=== PATIENT | male | born 1960 | race Caucasian/White ===

== ENCOUNTER 2021-02-14 16:13 | Inpatient (IN) | payer MEDICAID ==
[~2021-02-14] VITALS: Ht 180.3 cm; Wt 122.7 kg
[2021-02-14 20:36] LABS: BASOPHILS # (AUTO) 0.1 X10'3 (0-0.2); BASOPHILS % (AUTO) 0.6 % (0-1); EOSINOPHILS # (AUTO) 0.2 X10'3 (0-0.9); EOSINOPHILS % (AUTO) 1.3 % (0-6); HEMATOCRIT 42.3 % (42.0-52.0); HEMOGLOBIN 14.5 g/dl (14.0-17.9); LYMPHOCYTES % (AUTO) 22.9 % (21-51); MEAN CORPUSCULAR HEMOGLOBIN 30.2 PG (27.0-31.0); MEAN CORPUSCULAR HGB CONC 34.2 g/dL (33.0-36.5); MEAN CORPUSCULAR VOLUME 88.4 FL (78-98); MEAN PLATELET VOLUME 7.7 FL (7.4-10.4); MONOCYTES % (AUTO) 7.7 % (2-12); NEUTROPHILS # (AUTO) 8.7 X10'3 (1.8-7.7); NEUTROPHILS % (AUTO) 67.5 % (42-75); PLATELET COUNT 246 X10'3 (140-440); RED BLOOD COUNT 4.79 X10'6 (4.70-6.10); RED CELL DISTRIBUTION WIDTH 13.6 % (11.5-14.5); WHITE BLOOD COUNT 12.9 X10'3 (4.5-11.0)
[2021-02-14 20:52] LABS: ALANINE AMINOTRANSFERASE 8 U/L (12-78); ALBUMIN 3.2 G/DL (3.4-5.0); ALBUMIN/GLOBULIN RATIO 0.7 (1.1-1.5); ALKALINE PHOSPHATASE 77 IU/L (46-116); ANION GAP 9 (8-16); ASPARTATE AMINO TRANSFERASE 9 U/L (10-37); BILIRUBIN,TOTAL 0.3 MG/DL (0.1-1.0); BLOOD UREA NITROGEN 15 MG/DL (7-18); BUN/CREATININE RATIO 17.9 (5.4-32.0); C-REACTIVE PROTEIN 2.01 MG/DL (0.0-0.5); CALCIUM 8.6 MG/DL (8.5-10.1); CHLORIDE 105 MMOL/L (99-107); CREATININE 0.84 MG/DL (0.60-1.10); GLUCOSE 115 MG/DL (70-104); POTASSIUM 4.2 MMOL/L (3.5-5.1); SODIUM 141 MMOL/L (135-145); TOTAL PROTEIN 7.5 G/DL (6.4-8.2); eGFR > 90 ML/MIN
[2021-02-14] MEDS ORDERED: ringers solution, lactated 1000ml IV soln IV ONE (20:55)
[2021-02-14] MEDS ORDERED: ondansetron/PF 4mg/2ml inj IV ONE (20:55)
[2021-02-14] MEDS ORDERED: vancomycin/NS 1 GM ADD-VANTAGE 250 ML IV ONE (20:55)
[2021-02-14] MEDS ORDERED: morphine 2 MG/ML inj. syringe IV ONE (20:55)
[2021-02-14] MEDS ORDERED: piperacillin/tazo 4.5gm/100ml 100 ML IV SCH (20:58)
[2021-02-15] MEDS ORDERED: normal saline 1000ML IV soln IVB ONE (08:50)
[2021-02-15] MEDS ORDERED: magnesium hydroxide 30ml (MOM) UD suspension PO PRN (08:50)
[2021-02-15] MEDS ORDERED: potassium Cl 20 mEq SR tablet PO PRN ×2 (08:50)
[2021-02-15] MEDS ORDERED: ondansetron/PF 4mg/2ml inj IV PRN (08:50)
[2021-02-15] MEDS ORDERED: mag hydrox/Alum hydrox/simeth 30ml oral suspension PO PRN (08:50)
[2021-02-15] MEDS ORDERED: vancomycin/NS 1 GM ADD-VANTAGE 250 ML IV ONE (08:50)
[2021-02-15] MEDS ORDERED: magnesium 4gm in 100ml NS 100 ML IV PRN (08:50)
[2021-02-15] MEDS ORDERED: HYDROcodone/acetaminophen 5mg/325mg tablet PO PRN (08:50)
[2021-02-15] MEDS ORDERED: bisacodyl 10mg suppository rectal RC PRN (08:50)
[2021-02-15] MEDS ORDERED: magnesium Cl slow-release 64mg tablet PO PRN (08:50)
[2021-02-15] MEDS ORDERED: piperacillin/tazo 3.375gm/50ml 50 ML IV ONE (08:50)
[2021-02-15] MEDS ORDERED: acetaminophen 325mg tablet PO PRN ×2 (08:50)
[2021-02-15] MEDS ORDERED: potassium Cl 40MEQ/1/2NS 520ml 520 ML IV PRN ×2 (08:50)
[2021-02-15] MEDS ORDERED: magnesium 2GM in 50ml NS 50 ML IV PRN (08:50)
[2021-02-15] MEDS ORDERED: iohexol 350MG/ML 100ml bottle IV ONE (09:18)
[2021-02-15] MEDS: normal saline 1000ml 1,000 ML IV SCH ×2 (11:35→21:00)
[2021-02-15] MEDS: HYDROcodone/acetaminophen 10/325mg tab PO PRN (12:16)
[2021-02-15] MEDS ORDERED: ATOR40TA72 PO (12:51)
[2021-02-15] MEDS ORDERED: ALBU8HFA INH (12:51)
[2021-02-15] MEDS ORDERED: PREG300C19 PO (12:51)
[2021-02-15] MEDS ORDERED: SPIR25TA5 PO (12:51)
[2021-02-15] MEDS ORDERED: LISI20TA28 PO (12:51)
[2021-02-15] MEDS ORDERED: APIX5TAB3 PO (12:51)
[2021-02-15] MEDS ORDERED: TRAZ-256 PO (12:51)
[2021-02-15] MEDS ORDERED: METO25TA6 PO (12:51)
[2021-02-15] MEDS ORDERED: CHOL500050 PO (12:51)
[2021-02-15] MEDS ORDERED: METF-1203 PO (12:51)
[2021-02-15] MEDS ORDERED: SITA100T15 PO (12:51)
[2021-02-15] MEDS: HYDROmorphone inj. 0.5 MG/0.5 ML DISP.SYRIN IV PRN ×2 (13:35→22:06)
--- NOTE | 2021-02-15 14:38 | NUR ---
RELIEVING RN FOR BREAK, PT IS SLEEPING, RESP EVEN AND UNLABORED
[2021-02-15] MEDS ORDERED: albuterol 2.5 MG/3 ML nebule NEB PRN (15:00)
--- NOTE | 2021-02-15 15:39 | NUR ---
AT PATIENTS BEDSIDE, PATIENT WILL BE GOING TO OR TOMMORROW PATIENT CAN EAT TONIGHT DR. HANSON GAVE ME VERBAL DIET ORDER CARB CONTROLLED,HEART HEALTHY
[2021-02-15] MEDS ORDERED: PERFLUTREN PROTEIN-A MICROSPHR (Optison) 0.22 MG/ML 3ML VIAL IV ONE (17:20)
[2021-02-15 18:23] LABS: PARTIAL THROMBOPLASTIN TIME 30 SECONDS (22-32)
--- NOTE | 2021-02-15 20:30 | NUR ---
Received report from Paresh WALTON in the ER. Pt arrived on the unit via gurney and was able to ambulate with assistance to his bed. His personal belongings including his cane were placed at bedside. Pt was on room air, VSS, and he was SL. Pt had no signs of distress, will continue to monitor
[2021-02-15 21:00] VITALS: BP 135/77
[2021-02-15] MEDS ORDERED: temazepam 15mg capsule PO PRN (21:00)
[2021-02-15] MEDS: K and/or MAG REPLACEMENT MC SCH (21:45)
[2021-02-15] MEDS: pregabalin 75mg capsule PO SCH (22:04)
[2021-02-15] MEDS: nystatin 15 GM powder TP SCH (22:04)
[2021-02-15] MEDS: metoprolol tartrate 25mg tablet PO SCH (22:05)
[2021-02-15] MEDS: docusate sod 100mg capsule PO SCH (22:05)
[2021-02-16] VITALS (14 sets, daily range): BP systolic 96–143; BP diastolic 49–80
--- NOTE | 2021-02-16 01:00 | NUR ---
Pt insisting on wearing "pull ups" from home due to his incontinence issues. Educated pt on concern for skin breakdown, however pt still wants to wear briefs. Will monitor for skin issues.
[2021-02-16] MEDS: normal saline 1000ml 1,000 ML IV SCH ×2 (04:50→08:01)
[2021-02-16 05:30] LABS: BASOPHILS # (AUTO) 0.1 X10'3 (0-0.2); BASOPHILS % (AUTO) 0.7 % (0-1); EOSINOPHILS # (AUTO) 0.2 X10'3 (0-0.9); EOSINOPHILS % (AUTO) 1.8 % (0-6); HEMATOCRIT 39.2 % (42.0-52.0); HEMOGLOBIN 13.4 g/dl (14.0-17.9); LYMPHOCYTES # (AUTO) 2.5 X10'3 (1.1-4.8); LYMPHOCYTES % (AUTO) 25.9 % (21-51); MEAN CORPUSCULAR HEMOGLOBIN 30.1 PG (27.0-31.0); MEAN CORPUSCULAR HGB CONC 34.2 g/dL (33.0-36.5); MEAN CORPUSCULAR VOLUME 87.8 FL (78-98); MEAN PLATELET VOLUME 7.8 FL (7.4-10.4); MONOCYTES # (AUTO) 0.7 X10'3 (0-0.9); MONOCYTES % (AUTO) 7.4 % (2-12); NEUTROPHILS # (AUTO) 6.1 X10'3 (1.8-7.7); NEUTROPHILS % (AUTO) 64.2 % (42-75); PLATELET COUNT 218 X10'3 (140-440); RED BLOOD COUNT 4.46 X10'6 (4.70-6.10); RED CELL DISTRIBUTION WIDTH 13.4 % (11.5-14.5); WHITE BLOOD COUNT 9.5 X10'3 (4.5-11.0)
[2021-02-16 05:48] LABS: ALANINE AMINOTRANSFERASE 12 U/L (12-78); ALBUMIN 2.5 G/DL (3.4-5.0); ALBUMIN/GLOBULIN RATIO 0.7 (1.1-1.5); ALKALINE PHOSPHATASE 72 IU/L (46-116); ANION GAP 4 (8-16); ASPARTATE AMINO TRANSFERASE 8 U/L (10-37); BILIRUBIN,TOTAL 0.3 MG/DL (0.1-1.0); BLOOD UREA NITROGEN 14 MG/DL (7-18); BUN/CREATININE RATIO 18.2 (5.4-32.0); CALCIUM 8.3 MG/DL (8.5-10.1); CHLORIDE 108 MMOL/L (99-107); CHOL/HDL RATIO 3.3 (0.00-4.99); CHOLESTEROL 96 MG/DL (0-200); CREATININE 0.77 MG/DL (0.60-1.10); GLUCOSE 122 MG/DL (70-104); HDL CHOLESTEROL 29 MG/DL (35-60); LDL CHOLESTEROL 56 MG/DL (50-100); MAGNESIUM 1.9 MG/DL (1.5-2.4); POTASSIUM 4.1 MMOL/L (3.5-5.1); SODIUM 143 MMOL/L (135-145); TOTAL CARBON DIOXIDE 30.7 MMOL/L (24-32); TOTAL PROTEIN 6.1 G/DL (6.4-8.2); TRIGLYCERIDES 104 MG/DL (20-135); eGFR > 90 ML/MIN
[2021-02-16 06:04] LABS: HEMOGLOBIN A1C 7.7 % (4.5-6.2)
--- NOTE | 2021-02-16 06:21 | NUR ---
Problems reprioritized. Patient report given, questions answered & plan of care reviewed with Natalee WALTON.
--- NOTE | 2021-02-16 06:23 | NUR ---
Patient in room [facility]. I have received report from ANTON Pope and had the opportunity to ask questions and assume patient care.
[2021-02-16] MEDS: HYDROmorphone inj. 0.5 MG/0.5 ML DISP.SYRIN IV PRN ×2 (07:52→12:34)
[2021-02-16] MEDS: lisinopril 20mg tablet PO SCH (07:58)
[2021-02-16] MEDS: spironolactone 25 MG tablet PO SCH (07:58)
[2021-02-16] MEDS: pregabalin 75mg capsule PO SCH ×2 (07:59→19:51)
[2021-02-16] MEDS: metoprolol tartrate 25mg tablet PO SCH ×2 (07:59→19:51)
[2021-02-16] MEDS: nystatin 15 GM powder TP SCH ×3 (08:00→19:53)
[2021-02-16] MEDS ORDERED: traZODone 50mg tablet PO SCH (08:00)
[2021-02-16] MEDS: docusate sod 100mg capsule PO SCH ×2 (08:00→19:53)
[2021-02-16] MEDS: K and/or MAG REPLACEMENT MC SCH ×2 (08:00→19:45)
[2021-02-16] MEDS: linagliptin 5mg tablet PO SCH (10:38)
[2021-02-16] MEDS ORDERED: furosemide 40mg/4ml inj IV ONE (12:20)
--- NOTE | 2021-02-16 13:38 | NUR ---
Called report to executive director of nursing Roxanne WALTON.
--- NOTE | 2021-02-16 13:49 | NUR ---
Diabetes Consult: Provided pt w/ written and verbal DM education w/ RD contact info. Pt receptive of information, states he has been diabetic for many years. Addendum: 02/16/21 at [address] Amended: Links added.
--- NOTE | 2021-02-16 13:49 | NUR ---
Patient down to OR in bed accompanied by x2 staff.
[2021-02-16] MEDS ORDERED: proCHLORperazine 10 MG/2 ml inj IV PRN (14:15)
[2021-02-16] MEDS ORDERED: ondansetron/PF 4mg/2ml inj IV PRN (14:15)
[2021-02-16] MEDS ORDERED: meperidine/PF 25mg/ml syringe IV PRN ×3 (14:15)
[2021-02-16] MEDS ORDERED: morphine 2 MG/ML inj. syringe IV PRN (14:15)
[2021-02-16] MEDS ORDERED: ringers solution, lacted 1,000 ML IV SCH (14:15)
[2021-02-16] MEDS ORDERED: morphine 4 MG/ML inj SYRINge IV PRN (14:15)
[2021-02-16] MEDS ORDERED: BUPIVAcaine 0.5% inj/PF 30 ML ONE (14:30)
[2021-02-16] MEDS ORDERED: fentaNYL/PF 50MCG/1 ML 2ML syringe ONE (14:31)
[2021-02-16] MEDS ORDERED: MIDAZolam 1 MG/ML 5ML VIAL ONE (14:32)
[2021-02-16] MEDS ORDERED: ketamine 50mg/5ml syringe ONE (14:47)
[2021-02-16] MEDS ORDERED: vancomycin 1,000mg inj ONE ×2 (15:06→15:27)
[2021-02-16] MEDS ORDERED: bacitracin 15gm ointment TP ONE (15:58)
[2021-02-16] MEDS ORDERED: LIDOcaine 1%/PF 5ML 10 MG/ML VIAL ONE (15:59)
[2021-02-16] MEDS ORDERED: propofol inj 20 ML IV ONE (15:59)
[2021-02-16] MEDS ORDERED: LIDOcaine 2% (20mg/ml) 5ml vial ONE (15:59)
--- NOTE | 2021-02-16 16:07 | NUR ---
Received from OR via bed, accompanied by Anesthesiologist DR. HUDDLESTON and report given by Anesthesiolgist AND OR NURSE. PT ARRIVED DROWSY ON 10L 02 VIA MASK. PT HAS 18G IV TO LEFT WRIST WITH NS RUNNING AT 100ML/HR. PT RIGHT FOOT WRAPPED WITH TEGAN BANDAGE, C/D/I. PT APPEARS COMFORTABLE. VSS. Addendum: 02/16/21 at 1637 by Haily Francis RN Amended: Links added.
--- NOTE | 2021-02-16 17:27 | NUR ---
Report called to receiving nurse JASMYN. Transferred via BED, ALL Belongings IN PT ROOM. Special Issues communicated to receiving nurse. PT RIGHT FOOT BANDAGE WAS C/D/I. NO PAIN NOTED. VSS. NS RUNNING AT 100ML/HR. NURSE AT BEDSIDE TO ASSUME CARE. BED LOW WITH 2 RAILS UP. CALL LIGHT IN REACH. Addendum: 02/16/21 at 1734 by Haily Francis RN Amended: Links added.
--- NOTE | 2021-02-16 18:11 | NUR ---
patient returned to room 350B via bed accompanied by ANTON Ramirez. Dressing to right foot, elevated with 2 pillows. Patient educated on order to elevate right leg with 2 pillows and bedrest. Patient insisted that he needs to stand up and void. Patient reports that he "took two steps to go pee." Again reinforced teaching of need to elevate right leg with two pillows and bedrest. Will continue to monitor.
--- NOTE | 2021-02-16 18:11 | NUR ---
Patient returned to room 350B with dace
--- NOTE | 2021-02-16 18:30 | NUR ---
Patient in room [facility]. I have received report from Natalee WALTON and had the opportunity to ask questions and assume patient care.
--- NOTE | 2021-02-16 18:45 | NUR ---
Problems reprioritized. Patient report given, questions answered & plan of care reviewed with ANTON Pope.
[2021-02-16] MEDS: traZODone 50mg tablet PO SCH (19:53)
[2021-02-17] VITALS: BP 105/55
[2021-02-17 04:00] VITALS: BP 136/27
--- NOTE | 2021-02-17 05:12 | NUR ---
Pt accidentally pulled out hemovac. 20cc of sanguineous drainage. cv tech notified.
[2021-02-17] MEDS: normal saline 1000ml 1,000 ML IV SCH ×2 (05:32→16:53)
[2021-02-17 06:08] LABS: ALANINE AMINOTRANSFERASE 12 U/L (12-78); ALBUMIN 2.4 G/DL (3.4-5.0); ALBUMIN/GLOBULIN RATIO 0.7 (1.1-1.5); ALKALINE PHOSPHATASE 69 IU/L (46-116); ANION GAP 5 (8-16); ASPARTATE AMINO TRANSFERASE 10 U/L (10-37); BILIRUBIN,TOTAL 0.3 MG/DL (0.1-1.0); BLOOD UREA NITROGEN 10 MG/DL (7-18); BUN/CREATININE RATIO 14.3 (5.4-32.0); CALCIUM 8.4 MG/DL (8.5-10.1); CHLORIDE 109 MMOL/L (99-107); GLUCOSE 127 MG/DL (70-104); MAGNESIUM 1.8 MG/DL (1.5-2.4); POTASSIUM 3.8 MMOL/L (3.5-5.1); SODIUM 144 MMOL/L (135-145); TOTAL CARBON DIOXIDE 30.2 MMOL/L (24-32); TOTAL PROTEIN 5.9 G/DL (6.4-8.2); eGFR > 90 ML/MIN
[2021-02-17 06:14] LABS: BASOPHILS # (AUTO) 0.1 X10'3 (0-0.2); BASOPHILS % (AUTO) 0.6 % (0-1); EOSINOPHILS # (AUTO) 0.1 X10'3 (0-0.9); EOSINOPHILS % (AUTO) 1.4 % (0-6); HEMATOCRIT 37.4 % (42.0-52.0); LYMPHOCYTES # (AUTO) 2.1 X10'3 (1.1-4.8); LYMPHOCYTES % (AUTO) 22.2 % (21-51); MEAN CORPUSCULAR HEMOGLOBIN 30.1 PG (27.0-31.0); MEAN CORPUSCULAR HGB CONC 34.9 g/dL (33.0-36.5); MEAN CORPUSCULAR VOLUME 86.3 FL (78-98); MEAN PLATELET VOLUME 7.9 FL (7.4-10.4); MONOCYTES # (AUTO) 0.8 X10'3 (0-0.9); MONOCYTES % (AUTO) 8.7 % (2-12); NEUTROPHILS # (AUTO) 6.3 X10'3 (1.8-7.7); NEUTROPHILS % (AUTO) 67.1 % (42-75); PLATELET COUNT 215 X10'3 (140-440); RED BLOOD COUNT 4.33 X10'6 (4.70-6.10); RED CELL DISTRIBUTION WIDTH 13.3 % (11.5-14.5); WHITE BLOOD COUNT 9.4 X10'3 (4.5-11.0)
--- NOTE | 2021-02-17 06:32 | NUR ---
Problems reprioritized. Patient report given, questions answered & plan of care reviewed with Ebony WALTON.
[2021-02-17 07:25] VITALS: BP 134/69
[2021-02-17] MEDS: docusate sod 100mg capsule PO SCH ×2 (08:00→19:27)
[2021-02-17] MEDS: K and/or MAG REPLACEMENT MC SCH ×2 (08:00→20:00)
[2021-02-17] MEDS: linagliptin 5mg tablet PO SCH (08:38)
[2021-02-17] MEDS: nystatin 15 GM powder TP SCH ×3 (08:38→21:16)
[2021-02-17] MEDS: metoprolol tartrate 25mg tablet PO SCH ×2 (08:39→19:22)
[2021-02-17] MEDS: spironolactone 25 MG tablet PO SCH (08:40)
[2021-02-17] MEDS: lisinopril 20mg tablet PO SCH (08:40)
[2021-02-17] MEDS: pregabalin 75mg capsule PO SCH ×2 (08:43→19:21)
[2021-02-17] MEDS: HYDROcodone/acetaminophen 10/325mg tab PO PRN ×2 (11:38→21:17)
[2021-02-17 12:30] VITALS: BP 120/76
--- NOTE | 2021-02-17 16:55 | NUR ---
PAGER ID: [phone] MESSAGE: [id number] Celestine Daniels: Patient refusing his IV fluids, says he's "drinking enough water and has had enough" thank you! [phone]
--- NOTE | 2021-02-17 18:05 | NUR ---
Patient in room [facility]. I have received report from ANTON Beck and had the opportunity to ask questions and assume patient care.
--- NOTE | 2021-02-17 18:22 | NUR ---
Problems reprioritized. Patient report given, questions answered & plan of care reviewed with ANTON Rebolledo.
[2021-02-17] MEDS: HYDROmorphone inj. 0.5 MG/0.5 ML DISP.SYRIN IV PRN (19:22)
[2021-02-17 20:00] VITALS: BP 141/67
[2021-02-17] MEDS ORDERED: pregabalin 75mg capsule PO SCH (20:00)
[2021-02-17] MEDS: traZODone 50mg tablet PO SCH (21:15)
[2021-02-18] MEDS: HYDROcodone/acetaminophen 10/325mg tab PO PRN (05:11)
--- NOTE | 2021-02-18 06:20 | NUR ---
Problems reprioritized. Patient report given, questions answered & plan of care reviewed with ANTON Beck.
--- NOTE | 2021-02-18 06:37 | NUR ---
Patient in room [facility]. I have received report from Kesha WALTON and had the opportunity to ask questions and assume patient care.
[2021-02-18 06:58] LABS: BASOPHILS # (AUTO) 0.1 X10'3 (0-0.2); BASOPHILS % (AUTO) 0.7 % (0-1); EOSINOPHILS # (AUTO) 0.3 X10'3 (0-0.9); EOSINOPHILS % (AUTO) 3.4 % (0-6); HEMATOCRIT 37.7 % (42.0-52.0); HEMOGLOBIN 12.8 g/dl (14.0-17.9); LYMPHOCYTES # (AUTO) 2.3 X10'3 (1.1-4.8); LYMPHOCYTES % (AUTO) 24.5 % (21-51); MEAN CORPUSCULAR HEMOGLOBIN 29.8 PG (27.0-31.0); MEAN CORPUSCULAR VOLUME 87.8 FL (78-98); MEAN PLATELET VOLUME 7.9 FL (7.4-10.4); MONOCYTES % (AUTO) 10.7 % (2-12); NEUTROPHILS # (AUTO) 5.6 X10'3 (1.8-7.7); NEUTROPHILS % (AUTO) 60.7 % (42-75); PLATELET COUNT 220 X10'3 (140-440); RED BLOOD COUNT 4.29 X10'6 (4.70-6.10); RED CELL DISTRIBUTION WIDTH 13.3 % (11.5-14.5); WHITE BLOOD COUNT 9.2 X10'3 (4.5-11.0)
[2021-02-18 07:00] VITALS: BP 110/50
[2021-02-18 07:03] LABS: ALANINE AMINOTRANSFERASE 17 U/L (12-78); ALBUMIN 2.5 G/DL (3.4-5.0); ALBUMIN/GLOBULIN RATIO 0.7 (1.1-1.5); ALKALINE PHOSPHATASE 64 IU/L (46-116); ANION GAP 9 (8-16); ASPARTATE AMINO TRANSFERASE 10 U/L (10-37); BILIRUBIN,TOTAL 0.3 MG/DL (0.1-1.0); BLOOD UREA NITROGEN 12 MG/DL (7-18); BUN/CREATININE RATIO 12.2 (5.4-32.0); CALCIUM 8.5 MG/DL (8.5-10.1); CHLORIDE 106 MMOL/L (99-107); CREATININE 0.98 MG/DL (0.60-1.10); GLUCOSE 133 MG/DL (70-104); SODIUM 145 MMOL/L (135-145); TOTAL CARBON DIOXIDE 30.3 MMOL/L (24-32); TOTAL PROTEIN 6.3 G/DL (6.4-8.2); eGFR 78 ML/MIN
[2021-02-18] MEDS: HYDROmorphone inj. 0.5 MG/0.5 ML DISP.SYRIN IV PRN (07:06)
[2021-02-18] MEDS: K and/or MAG REPLACEMENT MC SCH (08:00)
[2021-02-18] MEDS: nystatin 15 GM powder TP SCH ×2 (08:00→12:04)
[2021-02-18] MEDS: spironolactone 25 MG tablet PO SCH (08:23)
[2021-02-18] MEDS: metoprolol tartrate 25mg tablet PO SCH (08:24)
[2021-02-18] MEDS: docusate sod 100mg capsule PO SCH (08:24)
[2021-02-18] MEDS: linagliptin 5mg tablet PO SCH (08:25)
[2021-02-18] MEDS: pregabalin 75mg capsule PO SCH (08:25)
[2021-02-18] MEDS: lisinopril 20mg tablet PO SCH (08:26)
[2021-02-18 11:00] VITALS: BP 115/73
[2021-02-18] MEDS ORDERED: AMOX-422 PO (12:29)
[2021-02-18] MEDS ORDERED: HYDR-3972 PO (14:34)
--- NOTE | 2021-02-18 15:53 | NUR ---
Patient stable and appropriate for discharge home via transport ride. IV removed, all belongings taken from room, ortho boot on patient. New medications e-scripted to preferred pharmacy. All discharge instructions and education given and reviewed with patient, all questions answered.
--- NOTE | 2021-02-18 16:14 | NUR ---
Student documentation: I have reviewed and agree with all interventions, assessments performed and documented by SN Tony. Student Medication Administration: For this medication-pass time frame, all medication were reviewed, dispensed, administered and documented per hospital policy by SN Tony.
== END 2021-02-18 15:51 | disposition home or self-care (01) | DRG 305 ==
LOC: ER 16:14 → ED HOLD 02-15 09:19 → SUR 3N 02-15 20:35
PROVIDERS: ADMIT Family Medicine; ATTEND Family Medicine
PROC: B42H1ZZ Computerized Tomography (CT Scan) of Bilateral Lower Extremity Arteries using Low Osmolar Contrast (ICD-10-PCS; 2021-02-15)
PROC: 0Y6M0ZB Detachment at Right Foot, Partial 2nd Ray, Open Approach (ICD-10-PCS; 2021-02-16)
PROC: 0Y6M0ZC Detachment at Right Foot, Partial 3rd Ray, Open Approach (ICD-10-PCS; 2021-02-16)
PROC: 0Y6M0ZD Detachment at Right Foot, Partial 4th Ray, Open Approach (ICD-10-PCS; 2021-02-16)
PROC: 0Y6M0ZF Detachment at Right Foot, Partial 5th Ray, Open Approach (ICD-10-PCS; 2021-02-16)
PROC: 3E0T3BZ Introduction of Anesthetic Agent into Peripheral Nerves and Plexi, Percutaneous Approach (ICD-10-PCS; 2021-02-16)
PROC: 0Y6M0Z9 Detachment at Right Foot, Partial 1st Ray, Open Approach (ICD-10-PCS; principal; 2021-02-16 14:25)
DX: E11.52 Type 2 diabetes mellitus with diabetic peripheral angiopathy with gangrene (principal); J90 Pleural effusion, not elsewhere classified; E11.40 Type 2 diabetes mellitus with diabetic neuropathy, unspecified; E11.69 Type 2 diabetes mellitus with other specified complication; M86.8X7 Other osteomyelitis, ankle and foot; G89.29 Other chronic pain; I10 Essential (primary) hypertension; F17.210 Nicotine dependence, cigarettes, uncomplicated; M54.9 Dorsalgia, unspecified; E66.9 Obesity, unspecified; I25.10 Atherosclerotic heart disease of native coronary artery without angina pectoris; J84.10 Pulmonary fibrosis, unspecified; Z20.822 Contact with and (suspected) exposure to COVID-19; Z79.01 Long term (current) use of anticoagulants; Z79.4 Long term (current) use of insulin; Z86.711 Personal history of pulmonary embolism; Z86.718 Personal history of other venous thrombosis and embolism; Z95.5 Presence of coronary angioplasty implant and graft; Z79.899 Other long term (current) drug therapy; Z98.52 Vasectomy status; Z68.37 Body mass index [BMI] 37.0-37.9, adult; Z71.6 Tobacco abuse counseling
CPT/HCPCS: 36415; 71045; 73660; 73706; 80053; 80061; 82948; 83036; 83605; 83735; 84145; 85025; 85610; 85651; 85730; 86140; 87040; 87081; 87635; 93005; 93306; 93925; 94760; 96365; 96366; 96368; 96375; 97110; 97116; 97161; 97530; 99285; A6222; A6446; A6449; A7000; G0378; J1170; J1940; J2001; J2250; J2270; J2405; J2543; J2704; J3010; J3370; J7030; J7120; Q9967

== ENCOUNTER 2021-03-18 13:00 | Inpatient (IN) | payer MEDICAID ==
[~2021-03-18] VITALS: Ht 180.3 cm; Wt 131.2 kg
[~2021-03-18 13:00] MED LIST: ALBU8HFA INH; APIX5TAB3 PO; ATOR40TA72 PO; CHOL500050 PO; HYDR-3972 PO; LISI20TA28 PO; METF-1203 PO; METO25TA6 PO; PREG300C19 PO; SITA100T15 PO; SPIR25TA5 PO; TRAZ-256 PO
[2021-03-20 10:00] VITALS: BP 149/84
--- NOTE | 2021-03-20 10:00 | NUR ---
Pt. arrived to unit as a direct admit. Via w/c. Transferred to bed, oriented to room, call light provided. Called MD Bazan for orders.
[2021-03-20] MEDS ORDERED: glucagon, human recombinant 1mg kit SUBCUT PRN (10:10)
[2021-03-20] MEDS ORDERED: dextrose 50%-water 50ml dispensing syringe IV PRN ×2 (10:10)
[2021-03-20] MEDS ORDERED: HYDROcodone/acetaminophen 10/325mg tab PO PRN (10:10)
[2021-03-20] MEDS ORDERED: MESSAGE TO PHARMACY PO ONE (10:10)
[2021-03-20] MEDS ORDERED: dextrose ORAL solution 15 GM/59 ML bottle PO PRN ×2 (10:10)
[2021-03-20] MEDS ORDERED: albuterol 2.5 MG/3 ML nebule NEB PRN (10:40)
[2021-03-20 10:59] LABS: BASOPHILS # (AUTO) 0.1 X10'3 (0-0.2); BASOPHILS % (AUTO) 0.7 % (0-1); EOSINOPHILS # (AUTO) 0.1 X10'3 (0-0.9); EOSINOPHILS % (AUTO) 1.1 % (0-6); HEMATOCRIT 39.3 % (42.0-52.0); HEMOGLOBIN 13.7 g/dl (14.0-17.9); LYMPHOCYTES % (AUTO) 19.5 % (21-51); MEAN CORPUSCULAR HEMOGLOBIN 30.6 PG (27.0-31.0); MEAN CORPUSCULAR HGB CONC 34.9 g/dL (33.0-36.5); MEAN CORPUSCULAR VOLUME 87.6 FL (78-98); MEAN PLATELET VOLUME 8.3 FL (7.4-10.4); MONOCYTES # (AUTO) 0.5 X10'3 (0-0.9); MONOCYTES % (AUTO) 5.2 % (2-12); NEUTROPHILS # (AUTO) 7.5 X10'3 (1.8-7.7); NEUTROPHILS % (AUTO) 73.5 % (42-75); PLATELET COUNT 215 X10'3 (140-440); RED BLOOD COUNT 4.49 X10'6 (4.70-6.10); RED CELL DISTRIBUTION WIDTH 13.8 % (11.5-14.5); WHITE BLOOD COUNT 10.2 X10'3 (4.5-11.0)
[2021-03-20 11:16] LABS: ALANINE AMINOTRANSFERASE 22 U/L (12-78); ALBUMIN 3.3 G/DL (3.4-5.0); ALBUMIN/GLOBULIN RATIO 0.8 (1.1-1.5); ALKALINE PHOSPHATASE 82 IU/L (46-116); ANION GAP 7 (8-16); ASPARTATE AMINO TRANSFERASE 13 U/L (10-37); BILIRUBIN,TOTAL 0.5 MG/DL (0.1-1.0); BLOOD UREA NITROGEN 12 MG/DL (7-18); BUN/CREATININE RATIO 14.8 (5.4-32.0); CALCIUM 9.2 MG/DL (8.5-10.1); CHLORIDE 103 MMOL/L (99-107); CREATININE 0.81 MG/DL (0.60-1.10); GLUCOSE 206 MG/DL (70-104); POTASSIUM 4.6 MMOL/L (3.5-5.1); SODIUM 138 MMOL/L (135-145); TOTAL CARBON DIOXIDE 27.8 MMOL/L (24-32); TOTAL PROTEIN 7.3 G/DL (6.4-8.2); eGFR > 90 ML/MIN
[2021-03-20 11:20] LABS: HEMOGLOBIN A1C 7.1 % (4.5-6.2)
[2021-03-20 12:01] VITALS: BP 132/70
[2021-03-20] MEDS: sodium chloride 0.45% 1,000 ML IV SCH (12:25)
[2021-03-20] MEDS: HYDROcodone/acetaminophen 10/325mg tab PO PRN (12:26)
[2021-03-20] MEDS ORDERED: pneumococcal 23-VAL P-sac vacc 25 mcg/0.5ml vial IMVAC ONE (13:00)
[2021-03-20] MEDS ORDERED: FLU VACC QS2021-22(6MOS UP)/PF 60 MCG/0.5 ML SYRINGE IM ONE (13:00)
--- NOTE | 2021-03-20 15:41 | NUR ---
pER CHARGE NO NEED TO TAKE PICTURES OF R FOOT
[2021-03-20] MEDS: HYDROmorphone 1 mg/ml syringe IV PRN (16:15)
[2021-03-20 18:00] VITALS: BP 135/78
--- NOTE | 2021-03-20 18:17 | NUR ---
GAVE REPORT TO JENNIFER WALTON.
[2021-03-20] MEDS: K and/or MAG REPLACEMENT MC SCH (20:00)
[2021-03-20] MEDS: metoprolol tartrate 25mg tablet PO SCH (20:15)
[2021-03-20] MEDS: traZODone 150mg tablet PO SCH (20:56)
[2021-03-20] MEDS: traZODone 50mg tablet PO SCH (20:56)
[2021-03-20] MEDS: insulin glargine (Lantus) pen - multi-dose SQ SCH (21:00)
[2021-03-21] VITALS (21 sets, daily range): BP systolic 100–144; BP diastolic 53–105
[2021-03-21 06:26] LABS: ALANINE AMINOTRANSFERASE 19 U/L (12-78); ALBUMIN 2.9 G/DL (3.4-5.0); ALBUMIN/GLOBULIN RATIO 0.8 (1.1-1.5); ALKALINE PHOSPHATASE 79 IU/L (46-116); ANION GAP 7 (8-16); ASPARTATE AMINO TRANSFERASE 8 U/L (10-37); BILIRUBIN,TOTAL 0.6 MG/DL (0.1-1.0); BLOOD UREA NITROGEN 12 MG/DL (7-18); CALCIUM 8.4 MG/DL (8.5-10.1); CHLORIDE 105 MMOL/L (99-107); CREATININE 0.86 MG/DL (0.60-1.10); GLUCOSE 174 MG/DL (70-104); SODIUM 141 MMOL/L (135-145); TOTAL PROTEIN 6.5 G/DL (6.4-8.2); eGFR 90 ML/MIN
--- NOTE | 2021-03-21 06:26 | NUR ---
Patient in room [facility]. I have received report from ANTON Og and had the opportunity to ask questions and assume patient care.
[2021-03-21 06:28] LABS: BASOPHILS # (AUTO) 0.1 X10'3 (0-0.2); BASOPHILS % (AUTO) 0.6 % (0-1); EOSINOPHILS # (AUTO) 0.2 X10'3 (0-0.9); EOSINOPHILS % (AUTO) 1.8 % (0-6); HEMATOCRIT 38.2 % (42.0-52.0); HEMOGLOBIN 13.3 g/dl (14.0-17.9); LYMPHOCYTES # (AUTO) 2.4 X10'3 (1.1-4.8); LYMPHOCYTES % (AUTO) 22.9 % (21-51); MEAN CORPUSCULAR HEMOGLOBIN 30.6 PG (27.0-31.0); MEAN CORPUSCULAR HGB CONC 34.9 g/dL (33.0-36.5); MEAN CORPUSCULAR VOLUME 87.8 FL (78-98); MEAN PLATELET VOLUME 8.7 FL (7.4-10.4); MONOCYTES # (AUTO) 0.8 X10'3 (0-0.9); MONOCYTES % (AUTO) 8.1 % (2-12); NEUTROPHILS # (AUTO) 6.9 X10'3 (1.8-7.7); NEUTROPHILS % (AUTO) 66.6 % (42-75); PLATELET COUNT 194 X10'3 (140-440); RED BLOOD COUNT 4.35 X10'6 (4.70-6.10); RED CELL DISTRIBUTION WIDTH 13.8 % (11.5-14.5); WHITE BLOOD COUNT 10.3 X10'3 (4.5-11.0)
--- NOTE | 2021-03-21 06:28 | NUR ---
Patient in room [facility]. I have received report from Sulaiman franks and had the opportunity to ask questions and assume patient care.
--- NOTE | 2021-03-21 06:44 | NUR ---
Problems reprioritized. Patient report given, questions answered & plan of care reviewed with JEZ. Addendum: 03/21/21 at 0644 by Sanjeev Ruby RN Amended: Links added.
[2021-03-21] MEDS: spironolactone 25 MG tablet PO SCH (07:52)
[2021-03-21] MEDS: atorvastatin 20mg tablet PO SCH (07:54)
[2021-03-21] MEDS: metoprolol tartrate 25mg tablet PO SCH ×2 (07:55→22:01)
[2021-03-21] MEDS: lisinopril 20mg tablet PO SCH (07:57)
[2021-03-21] MEDS: K and/or MAG REPLACEMENT MC SCH ×2 (08:00→19:28)
--- NOTE | 2021-03-21 08:54 | NUR ---
Diabetes consult: Pt seen by BLAYNE last month 02/16 for written and verbal DM education w/ RD contact info. DM ed not warranted at this time. Will continue to monitor. Addendum: 03/21/21 at [address] Amended: Links added.
[2021-03-21] MEDS ORDERED: bacitracin 15gm ointment TP ONE (09:04)
--- NOTE | 2021-03-21 09:59 | NUR ---
as occupational health nursing director, i reviewed student nurse documentation
[2021-03-21] MEDS: HYDROmorphone 1 mg/ml syringe IV PRN ×2 (10:12→22:08)
--- NOTE | 2021-03-21 11:18 | NUR ---
Problems reprioritized. Patient report given, questions answered & plan of care reviewed with Jaclyn WALTON.
--- NOTE | 2021-03-21 11:20 | NUR ---
pt was picked up and is headed down to surgery. pt is stable
[2021-03-21] MEDS ORDERED: sevoflurane 250ml liquid IH ONE (11:42)
[2021-03-21] MEDS ORDERED: meperidine/PF 25mg/ml syringe IV PRN ×3 (11:45)
[2021-03-21] MEDS ORDERED: proCHLORperazine 10 MG/2 ml inj IV PRN (11:45)
[2021-03-21] MEDS ORDERED: hydrALAZINE 20mg/ml inj. IV PRN (11:45)
[2021-03-21] MEDS ORDERED: morphine 2 MG/ML inj. syringe IV PRN (11:45)
[2021-03-21] MEDS ORDERED: labetalol 20mg/4ml (5mg/ml) syringe IV PRN (11:45)
[2021-03-21] MEDS ORDERED: ringers solution, lacted 1,000 ML IV SCH (11:45)
[2021-03-21] MEDS ORDERED: acetaminophen 1,000mg/100ml IV 100 ML IV PRN (11:45)
[2021-03-21] MEDS ORDERED: ondansetron/PF 4mg/2ml inj IV PRN ×2 (11:45→14:20)
[2021-03-21] MEDS ORDERED: cloNIDine hcl/PF 100mcg/ml inj ONE (11:47)
--- NOTE | 2021-03-21 11:47 | NUR ---
Problems reprioritized. Patient report given, questions answered & plan of care reviewed with ANTON Byrne.
[2021-03-21] MEDS ORDERED: midazolam 1 mg/ML 2ml injection ONE (11:49)
[2021-03-21] MEDS ORDERED: fentaNYL /PF 50mcg/ml 5ml ampule ONE (11:50)
[2021-03-21] MEDS ORDERED: ROPIVAcaine 0.5% (5mg/ml) 30ml vial ONE (12:11)
[2021-03-21] MEDS ORDERED: propofol inj 20 ML IV ONE (12:11)
[2021-03-21] MEDS ORDERED: LIDOcaine 2% (20mg/ml) 5ml vial ONE (12:12)
[2021-03-21] MEDS ORDERED: dexamethasone sod phosphate 4mg/ml inj. ONE ×2 (12:12)
[2021-03-21] MEDS ORDERED: ondansetron/PF 4mg/2ml inj ONE (12:12)
[2021-03-21] MEDS ORDERED: ceFAZolin 1000mg inj ONE ×2 (12:20)
[2021-03-21] MEDS ORDERED: morphine 10mg/ml inj. ONE (13:56)
[2021-03-21] MEDS ORDERED: bisacodyl 10mg suppository rectal RC PRN (14:20)
[2021-03-21] MEDS ORDERED: acetaminophen 325mg tablet PO PRN (14:20)
[2021-03-21] MEDS ORDERED: diphenhydrAMINE 25mg capsule PO PRN ×2 (14:20)
[2021-03-21] MEDS: potassium cl 20mEq in 1/2 NS 1,000 ML IV SCH ×2 (14:20→23:37)
[2021-03-21] MEDS ORDERED: HYDROmorphone inj. 0.5 MG/0.5 ML DISP.SYRIN IV PRN (14:20)
[2021-03-21] MEDS ORDERED: magnesium hydroxide 30ml (MOM) UD suspension PO PRN (14:20)
--- NOTE | 2021-03-21 14:20 | NUR ---
Received from OR via BED, accompanied by Anesthesiologist DR. MARTIN and report given by Anesthesiolgist AND OR NURSE. PT ARRIVED DROWSY ON 10L 02 VIA MASK. PT WAS MOANING IN PAIN AND STATED THAT HE HAS PAIN IN HIS RIGHT LEG. DENIES NAUSEA. MARIE. R FEMORAL PULSE STRONG. 20G IV TO R WRIST. RIGHT LEG WRAPPED IN TEGAN BANDAIGE C/D/I. PT HAS HEMOVAC DRAIN DRAINING BLOOD SLOWLY. VSS. WILL CONTINUE TO MONITOR. Addendum: 03/21/21 at 1456 by Haily Francis RN Amended: Links added.
[2021-03-21] MEDS: morphine 4 MG/ML inj SYRINge IV PRN ×2 (14:32→14:39)
[2021-03-21] MEDS: oxyCODONE IR 5mg (immed. release) tablet PO PRN (14:48)
--- NOTE | 2021-03-21 14:49 | NUR ---
Problems reprioritized. Patient report given, questions answered & plan of care reviewed with Genevieve Liu.
--- NOTE | 2021-03-21 15:40 | NUR ---
PATIENT HAS MET ALL CRITERIA FOR TRANSFER TO THE SURGICAL FLOOR. VSS. DRESSINGS INTACT, HEMOVAC DRAIN EMPTIED. PT HAS SOME PAIN BUT APPEARS MORE COMFORTABLE WHICH HE SHOWS BY A RELAXED FACE AND CLOSED EYES. BED LOW, CALL LIGHT PRESENT AND 2 RAILS UP. RN PRESENT TO ACCEPT CARE OF PATIENT AND REPORT HAS BEEN CALLED AND GIVEN TO ANTON RICE. ALL QUESTIONS ANSWERED TO ACCEPTING RN. Addendum: 03/21/21 at 1552 by Haily Francis RN Amended: Links added.
[2021-03-21] MEDS: ceFAZolin/D5W- 1GM premix 50 ML IV SCH (16:23)
--- NOTE | 2021-03-21 18:15 | NUR ---
Post procedure vitals stable on RA. Pain controlled. IV antibiotics cont. Report given to Sulaiman WALTON
--- NOTE | 2021-03-21 19:54 | NUR ---
Problems reprioritized. Patient report given, questions answered & plan of care reviewed with AMIRA. Addendum: 03/21/21 at 5 by Sanjeev Ruby RN Amended: Links added.
[2021-03-21] MEDS ORDERED: vancomycin/NS 1 GM ADD-VANTAGE 250 ML IV SCH (20:00)
--- NOTE | 2021-03-21 20:00 | NUR ---
Patient in room [facility]. I have received report from Sulaiman WALTON and had the opportunity to ask questions and assume patient care.
[2021-03-21] MEDS: traZODone 150mg tablet PO SCH (21:56)
[2021-03-21] MEDS: traZODone 50mg tablet PO SCH (21:56)
[2021-03-21] MEDS: gabapentin 300mg capsule PO SCH (21:57)
[2021-03-21] MEDS: sennosides 8.6mg tablet PO SCH (21:57)
[2021-03-21] MEDS: acetaminophen 325mg tablet PO SCH (21:59)
[2021-03-21] MEDS: sodium chloride 0.45% 1,000 ML IV SCH (22:09)
[2021-03-21] MEDS: insulin glargine (Lantus) pen - multi-dose SQ SCH (22:50)
[2021-03-22] VITALS (7 sets, daily range): BP systolic 94–127; BP diastolic 51–64
[2021-03-22] MEDS: ceFAZolin/D5W- 1GM premix 50 ML IV SCH (00:59)
[2021-03-22] MEDS: acetaminophen 325mg tablet PO SCH ×4 (02:00→19:24)
[2021-03-22] MEDS: HYDROcodone/acetaminophen 10/325mg tab PO PRN (05:42)
--- NOTE | 2021-03-22 06:00 | NUR ---
Patient in room [facility]. I have received report from Nai WALTON and had the opportunity to ask questions and assume patient care.
[2021-03-22 06:03] LABS: BASOPHILS % (AUTO) 0.1 % (0-1); EOSINOPHILS % (AUTO) 0 % (0-6); HEMATOCRIT 37.6 % (42.0-52.0); LYMPHOCYTES # (AUTO) 1.2 X10'3 (1.1-4.8); LYMPHOCYTES % (AUTO) 8.3 % (21-51); MEAN CORPUSCULAR HEMOGLOBIN 30.3 PG (27.0-31.0); MEAN CORPUSCULAR HGB CONC 34.5 g/dL (33.0-36.5); MEAN CORPUSCULAR VOLUME 87.7 FL (78-98); MEAN PLATELET VOLUME 8.7 FL (7.4-10.4); MONOCYTES # (AUTO) 0.9 X10'3 (0-0.9); MONOCYTES % (AUTO) 6.4 % (2-12); NEUTROPHILS % (AUTO) 85.2 % (42-75); PLATELET COUNT 213 X10'3 (140-440); RED BLOOD COUNT 4.28 X10'6 (4.70-6.10); RED CELL DISTRIBUTION WIDTH 13.7 % (11.5-14.5); WHITE BLOOD COUNT 14.1 X10'3 (4.5-11.0)
[2021-03-22] MEDS: potassium cl 20mEq in 1/2 NS 1,000 ML IV SCH (06:20)
--- NOTE | 2021-03-22 06:30 | NUR ---
Problems reprioritized. Patient report given, questions answered & plan of care reviewed with Nai WALTON and nursing informatics analyst.
[2021-03-22 06:39] LABS: ALANINE AMINOTRANSFERASE 16 U/L (12-78); ALBUMIN 2.7 G/DL (3.4-5.0); ALBUMIN/GLOBULIN RATIO 0.7 (1.1-1.5); ALKALINE PHOSPHATASE 76 IU/L (46-116); ANION GAP 6 (8-16); ASPARTATE AMINO TRANSFERASE 18 U/L (10-37); BILIRUBIN,TOTAL 0.4 MG/DL (0.1-1.0); BLOOD UREA NITROGEN 13 MG/DL (7-18); BUN/CREATININE RATIO 14.6 (5.4-32.0); CALCIUM 8.6 MG/DL (8.5-10.1); CHLORIDE 107 MMOL/L (99-107); CREATININE 0.89 MG/DL (0.60-1.10); GLUCOSE 206 MG/DL (70-104); POTASSIUM 4.4 MMOL/L (3.5-5.1); SODIUM 142 MMOL/L (135-145); TOTAL CARBON DIOXIDE 28.8 MMOL/L (24-32); TOTAL PROTEIN 6.4 G/DL (6.4-8.2); eGFR 87 ML/MIN
--- NOTE | 2021-03-22 06:48 | NUR ---
Patient in room [facility]. I have received report from Hattie WALTON and had the opportunity to ask questions and assume patient care.
--- NOTE | 2021-03-22 07:16 | NUR ---
DM consult: Addressed in previous RD assessment. Addendum: 03/22/21 at [address] Amended: Links added.
[2021-03-22] MEDS: metoprolol tartrate 25mg tablet PO SCH ×2 (08:00→19:24)
[2021-03-22] MEDS: spironolactone 25 MG tablet PO SCH (08:00)
[2021-03-22] MEDS: lisinopril 20mg tablet PO SCH (08:00)
[2021-03-22] MEDS: K and/or MAG REPLACEMENT MC SCH ×2 (08:00→20:00)
[2021-03-22] MEDS: gabapentin 300mg capsule PO SCH (09:08)
[2021-03-22] MEDS: atorvastatin 20mg tablet PO SCH (09:08)
[2021-03-22] MEDS: insulin Lispro (HumaLOG) vial - multi-dose SQ SCH ×3 (09:11→18:35)
[2021-03-22] MEDS: HYDROmorphone 1 mg/ml syringe IV PRN (10:15)
--- NOTE | 2021-03-22 11:38 | NUR ---
Student documentation: I have reviewed and agree with all interventions, assessments performed and documented by Amber Raza, clinical nursing professor.
--- NOTE | 2021-03-22 11:38 | NUR ---
Student Medication Administration: For this medication-pass time frame, all medication were reviewed, dispensed, administered and documented per hospital policy by Amber Raza, nursing home director.
[2021-03-22] MEDS ORDERED: normal saline 500ml IV soln 500 ML IV ONE (12:05)
[2021-03-22] MEDS ORDERED: pregabalin 75mg capsule PO ONE (12:05)
[2021-03-22] MEDS: oxyCODONE IR 5mg (immed. release) tablet PO PRN ×3 (13:03→21:22)
--- NOTE | 2021-03-22 13:09 | NUR ---
graduate student Amber was administering medication to patient with instructor accidentally dropped one of the Oxy IR 5mg tablet on floor. Pharmacy aware placed order for patient to get 2nd pill.
[2021-03-22] MEDS ORDERED: oxyCODONE IR 5mg (immed. release) tablet PO ONE (13:10)
--- NOTE | 2021-03-22 18:10 | NUR ---
Received report from ANTON Trimble. Patient awake, alert and oriented x4 on room air, in no apparent distress. Call light and items of frequent use within reach. Will continue to monitor.
--- NOTE | 2021-03-22 18:39 | NUR ---
Problems reprioritized. Patient report given, questions answered & plan of care reviewed with Claudette WALTON.
[2021-03-22] MEDS: pregabalin 75mg capsule PO SCH (19:21)
[2021-03-22] MEDS: celeCOXIB 100mg capsule PO SCH (19:22)
[2021-03-22] MEDS: apixaban 5mg tablet PO SCH (19:26)
--- NOTE | 2021-03-22 20:52 | NUR ---
PAGER ID: [phone] MESSAGE: Claudette WALTON [phone] for Ivan BautistaKinney in [facility]B. Pt has yeast in groin. Nystatin ok? Addendum: 03/23/21 at 0447 by Claudette Rivera RN Not a hospitalist patient; needs to be addressed with Dr. Bazan in AM.
[2021-03-22] MEDS: sennosides 8.6mg tablet PO SCH (21:18)
[2021-03-22] MEDS: traZODone 50mg tablet PO SCH ×2 (21:19→23:30)
[2021-03-22] MEDS: traZODone 150mg tablet PO SCH ×2 (21:19→23:30)
[2021-03-22] MEDS: insulin glargine (Lantus) pen - multi-dose SQ SCH (21:26)
[2021-03-23] MEDS: acetaminophen 325mg tablet PO SCH ×3 (02:00→13:00)
[2021-03-23 06:29] LABS: BASOPHILS # (AUTO) 0.1 X10'3 (0-0.2); BASOPHILS % (AUTO) 0.5 % (0-1); EOSINOPHILS # (AUTO) 0.1 X10'3 (0-0.9); HEMOGLOBIN 12.3 g/dl (14.0-17.9); LYMPHOCYTES # (AUTO) 3.1 X10'3 (1.1-4.8); LYMPHOCYTES % (AUTO) 24.6 % (21-51); MEAN CORPUSCULAR HEMOGLOBIN 30.4 PG (27.0-31.0); MEAN CORPUSCULAR HGB CONC 34.3 g/dL (33.0-36.5); MEAN CORPUSCULAR VOLUME 88.4 FL (78-98); MEAN PLATELET VOLUME 8.6 FL (7.4-10.4); MONOCYTES % (AUTO) 8.3 % (2-12); NEUTROPHILS # (AUTO) 8.3 X10'3 (1.8-7.7); NEUTROPHILS % (AUTO) 65.6 % (42-75); PLATELET COUNT 195 X10'3 (140-440); RED BLOOD COUNT 4.07 X10'6 (4.70-6.10); RED CELL DISTRIBUTION WIDTH 13.9 % (11.5-14.5); WHITE BLOOD COUNT 12.6 X10'3 (4.5-11.0)
--- NOTE | 2021-03-23 06:43 | NUR ---
Problems reprioritized. Patient report given, questions answered & plan of care reviewed with ANTON Hay.
[2021-03-23 06:45] LABS: ALANINE AMINOTRANSFERASE 15 U/L (12-78); ALBUMIN 2.7 G/DL (3.4-5.0); ALBUMIN/GLOBULIN RATIO 0.7 (1.1-1.5); ALKALINE PHOSPHATASE 72 IU/L (46-116); ANION GAP 3 (8-16); ASPARTATE AMINO TRANSFERASE 22 U/L (10-37); BILIRUBIN,TOTAL 0.4 MG/DL (0.1-1.0); BLOOD UREA NITROGEN 15 MG/DL (7-18); BUN/CREATININE RATIO 19.5 (5.4-32.0); CALCIUM 8.7 MG/DL (8.5-10.1); CHLORIDE 106 MMOL/L (99-107); CREATININE 0.77 MG/DL (0.60-1.10); GLUCOSE 181 MG/DL (70-104); POTASSIUM 4.3 MMOL/L (3.5-5.1); SODIUM 141 MMOL/L (135-145); TOTAL PROTEIN 6.4 G/DL (6.4-8.2); eGFR > 90 ML/MIN
--- NOTE | 2021-03-23 07:01 | NUR ---
Patient in room [facility]. I have received report from dario franks and had the opportunity to ask questions and assume patient care.
[2021-03-23] MEDS: celeCOXIB 100mg capsule PO SCH ×2 (07:07→21:33)
[2021-03-23] MEDS: atorvastatin 20mg tablet PO SCH (07:07)
[2021-03-23] MEDS: pregabalin 75mg capsule PO SCH ×2 (07:08→21:32)
[2021-03-23] MEDS: oxyCODONE IR 5mg (immed. release) tablet PO PRN ×2 (07:09→07:11)
[2021-03-23] MEDS: metoprolol tartrate 25mg tablet PO SCH ×2 (07:10→21:33)
[2021-03-23] MEDS: lisinopril 20mg tablet PO SCH (07:10)
[2021-03-23] MEDS: spironolactone 25 MG tablet PO SCH (07:12)
[2021-03-23] MEDS: apixaban 5mg tablet PO SCH ×2 (07:13→21:30)
--- NOTE | 2021-03-23 07:15 | NUR ---
nursing program coordinator scanned 5mg and 10mg oxycodone. Correction made, pt received 10mg oxycodone at 0710 per md order,.
[2021-03-23] MEDS: K and/or MAG REPLACEMENT MC SCH ×2 (07:17→20:00)
[2021-03-23 08:00] VITALS: BP 125/52
[2021-03-23] MEDS: insulin Lispro (HumaLOG) vial - multi-dose SQ SCH ×3 (10:00→18:59)
[2021-03-23] MEDS: HYDROmorphone 1 mg/ml syringe IV PRN ×2 (10:13→20:18)
[2021-03-23] MEDS ORDERED: HYDROcodone/acetaminophen 10/325mg tab PO PRN (10:45)
[2021-03-23] MEDS ORDERED: pregabalin 75mg capsule PO ONE (10:45)
[2021-03-23 11:00] VITALS: BP 105/57
[2021-03-23] MEDS: HYDROcodone/acetaminophen 10/325mg tab PO PRN (13:02)
[2021-03-23] MEDS ORDERED: acetaminophen 325mg tablet PO PRN (14:20)
[2021-03-23 18:00] VITALS: BP 117/53
--- NOTE | 2021-03-23 18:38 | NUR ---
Pt had 2 large bowel movements. Pts wound dressing changed today by nurse orthopedic. Patients pain medications changed by orthopedic PA. Pt looking forward to working with physical therapy tomorrow morning. pt would like to go home instead of to rehab.
[2021-03-23 20:11] VITALS: BP 114/69
[2021-03-23] MEDS: sennosides 8.6mg tablet PO SCH (21:00)
[2021-03-23] MEDS: insulin glargine (Lantus) pen - multi-dose SQ SCH (21:38)
[2021-03-24] VITALS: BP 106/63
[2021-03-24] MEDS: HYDROcodone/acetaminophen 10/325mg tab PO PRN (03:58)
[2021-03-24 05:51] LABS: BASOPHILS # (AUTO) 0.1 X10'3 (0-0.2); EOSINOPHILS # (AUTO) 0.3 X10'3 (0-0.9); EOSINOPHILS % (AUTO) 2.6 % (0-6); HEMOGLOBIN 11.7 g/dl (14.0-17.9); LYMPHOCYTES # (AUTO) 3.5 X10'3 (1.1-4.8); MONOCYTES # (AUTO) 0.9 X10'3 (0-0.9); PLATELET COUNT 203 X10'3 (140-440)
[2021-03-24 05:53] LABS: BASOPHILS % (AUTO) 0.8 % (0-1); HEMATOCRIT 34.1 % (42.0-52.0); MEAN CORPUSCULAR HEMOGLOBIN 30.4 PG (27.0-31.0); MEAN CORPUSCULAR HGB CONC 34.4 g/dL (33.0-36.5); MEAN CORPUSCULAR VOLUME 88.5 FL (78-98); MEAN PLATELET VOLUME 8.3 FL (7.4-10.4); MONOCYTES % (AUTO) 8.5 % (2-12); NEUTROPHILS # (AUTO) 5.8 X10'3 (1.8-7.7); NEUTROPHILS % (AUTO) 55.1 % (42-75); RED BLOOD COUNT 3.85 X10'6 (4.70-6.10); RED CELL DISTRIBUTION WIDTH 13.9 % (11.5-14.5); WHITE BLOOD COUNT 10.5 X10'3 (4.5-11.0)
[2021-03-24 06:07] LABS: ALANINE AMINOTRANSFERASE 18 U/L (12-78); ALBUMIN 2.7 G/DL (3.4-5.0); ALBUMIN/GLOBULIN RATIO 0.7 (1.1-1.5); ALKALINE PHOSPHATASE 68 IU/L (46-116); ANION GAP 5 (8-16); ASPARTATE AMINO TRANSFERASE 17 U/L (10-37); BILIRUBIN,TOTAL 0.3 MG/DL (0.1-1.0); BLOOD UREA NITROGEN 17 MG/DL (7-18); CALCIUM 8.6 MG/DL (8.5-10.1); CHLORIDE 103 MMOL/L (99-107); CREATININE 0.85 MG/DL (0.60-1.10); GLUCOSE 170 MG/DL (70-104); POTASSIUM 4.3 MMOL/L (3.5-5.1); SODIUM 138 MMOL/L (135-145); TOTAL CARBON DIOXIDE 30.1 MMOL/L (24-32); TOTAL PROTEIN 6.4 G/DL (6.4-8.2); eGFR > 90 ML/MIN
--- NOTE | 2021-03-24 06:30 | NUR ---
Patient in room [facility]. I have received report from Harris and had the opportunity to ask questions and assume patient care.
[2021-03-24 07:11] VITALS: BP 119/72
--- NOTE | 2021-03-24 07:25 | NUR ---
pt states he uses a urinal at home, doesn't move quick enough in time to toilet regularly Addendum: 03/24/21 at 0734 by Kerry Zimmerman - Student BRAD Amended: Links added.
[2021-03-24] MEDS: celeCOXIB 100mg capsule PO SCH ×2 (07:57→20:52)
[2021-03-24] MEDS: apixaban 5mg tablet PO SCH ×2 (07:58→20:52)
[2021-03-24] MEDS: atorvastatin 20mg tablet PO SCH (07:58)
[2021-03-24] MEDS: lisinopril 20mg tablet PO SCH (08:00)
[2021-03-24] MEDS: spironolactone 25 MG tablet PO SCH (08:00)
[2021-03-24] MEDS: metoprolol tartrate 25mg tablet PO SCH ×2 (08:00→20:52)
[2021-03-24] MEDS: pregabalin 75mg capsule PO SCH ×2 (08:00→20:52)
[2021-03-24] MEDS: K and/or MAG REPLACEMENT MC SCH ×2 (08:00→20:00)
--- NOTE | 2021-03-24 08:06 | NUR ---
Lisinopril, metoprolol, and spironolactone held due to decreased blood pressure (93/59) and pulse (67 BPM).
[2021-03-24] MEDS: insulin Lispro (HumaLOG) vial - multi-dose SQ SCH ×3 (10:03→19:08)
[2021-03-24] MEDS: HYDROmorphone 1 mg/ml syringe IV PRN ×2 (10:07→19:09)
--- NOTE | 2021-03-24 10:20 | NUR ---
Initial: Pt admitted w/ gangrene of R foot, has hx of TMA though will require BKA now per EMR. Pt underwent BKA 03/21. Pt has been on CCHO diet w/ mostly 100% intake meeting minimum nutrient needs at this time, though pt may benefit from Rick smoothies BID to assist w/ wound healing. LBM 03/23 receiving routine bowel care. Will continue to monitor and make recommendations as appropriate. Recs: 1. Continue CCHO diet as tolerated 2. Rick BIDBD; pending physician approval 3. Bowel care per rx 4. Weekly wts Addendum: 03/24/21 at [address] Amended: Links added.
[2021-03-24 11:36] VITALS: BP 125/66
[2021-03-24] MEDS ORDERED: JUVEN Smoothie Arginine/Glut./Ca2+Bmb (Juven 19.3pkt) 240ml cup PO SCH (17:30)
[2021-03-24 18:00] VITALS: BP 129/73
--- NOTE | 2021-03-24 18:08 | NUR ---
Problems reprioritized. Patient report given, questions answered & plan of care reviewed with Harris WALTON.
[2021-03-24] MEDS: sennosides 8.6mg tablet PO SCH (20:55)
[2021-03-24] MEDS ORDERED: pregabalin 75mg capsule PO SCH (21:00)
[2021-03-24] MEDS: insulin glargine (Lantus) pen - multi-dose SQ SCH (21:54)
[2021-03-24 22:05] VITALS: BP 130/74
[2021-03-24] MEDS: traZODone 150mg tablet PO SCH (22:06)
[2021-03-24] MEDS: traZODone 50mg tablet PO SCH (22:06)
[2021-03-25] VITALS: BP 128/64
[2021-03-25] MEDS: pregabalin 75mg capsule PO SCH
[2021-03-25] MEDS: HYDROmorphone 1 mg/ml syringe IV PRN (06:29)
[2021-03-25 07:00] VITALS: BP 149/76
[2021-03-25 07:18] LABS: BASOPHILS # (AUTO) 0.1 X10'3 (0-0.2); BASOPHILS % (AUTO) 0.6 % (0-1); EOSINOPHILS # (AUTO) 0.3 X10'3 (0-0.9); EOSINOPHILS % (AUTO) 3.3 % (0-6); HEMATOCRIT 37.9 % (42.0-52.0); LYMPHOCYTES # (AUTO) 2.7 X10'3 (1.1-4.8); LYMPHOCYTES % (AUTO) 30.7 % (21-51); MEAN CORPUSCULAR HEMOGLOBIN 30.2 PG (27.0-31.0); MEAN CORPUSCULAR HGB CONC 34.3 g/dL (33.0-36.5); MEAN PLATELET VOLUME 8.4 FL (7.4-10.4); MONOCYTES # (AUTO) 0.8 X10'3 (0-0.9); MONOCYTES % (AUTO) 8.7 % (2-12); NEUTROPHILS % (AUTO) 56.7 % (42-75); PLATELET COUNT 232 X10'3 (140-440); RED CELL DISTRIBUTION WIDTH 13.7 % (11.5-14.5); WHITE BLOOD COUNT 8.9 X10'3 (4.5-11.0)
[2021-03-25 07:30] LABS: ALANINE AMINOTRANSFERASE 20 U/L (12-78); ALBUMIN 2.8 G/DL (3.4-5.0); ALBUMIN/GLOBULIN RATIO 0.7 (1.1-1.5); ALKALINE PHOSPHATASE 76 IU/L (46-116); ANION GAP 5 (8-16); ASPARTATE AMINO TRANSFERASE 16 U/L (10-37); BILIRUBIN,TOTAL 0.5 MG/DL (0.1-1.0); BLOOD UREA NITROGEN 15 MG/DL (7-18); BUN/CREATININE RATIO 17.2 (5.4-32.0); CALCIUM 9.3 MG/DL (8.5-10.1); CHLORIDE 103 MMOL/L (99-107); CREATININE 0.87 MG/DL (0.60-1.10); GLUCOSE 125 MG/DL (70-104); POTASSIUM 4.4 MMOL/L (3.5-5.1); SODIUM 139 MMOL/L (135-145); TOTAL CARBON DIOXIDE 31.5 MMOL/L (24-32); eGFR 89 ML/MIN
[2021-03-25] MEDS: K and/or MAG REPLACEMENT MC SCH (08:00)
[2021-03-25 08:04] VITALS: BP_SYST 112
[2021-03-25] MEDS: metoprolol tartrate 25mg tablet PO SCH (08:04)
[2021-03-25] MEDS: lisinopril 20mg tablet PO SCH (08:04)
[2021-03-25] MEDS: spironolactone 25 MG tablet PO SCH (08:04)
[2021-03-25] MEDS: celeCOXIB 100mg capsule PO SCH (08:04)
[2021-03-25] MEDS: apixaban 5mg tablet PO SCH (08:04)
[2021-03-25] MEDS: atorvastatin 20mg tablet PO SCH (08:04)
[2021-03-25] MEDS: insulin Lispro (HumaLOG) vial - multi-dose SQ SCH (08:11)
[2021-03-25] MEDS: HYDROcodone/acetaminophen 10/325mg tab PO PRN (08:18)
[2021-03-25] MEDS ORDERED: HYDR-3972 PO ×2 (12:22→12:26)
--- NOTE | 2021-03-25 12:51 | NUR ---
Paged Case Management Surgical Kyung RN ext [phone]. REL Ivan Daniels. Patient he will need transportation arrangement to get back home. He said to contact Amber Webber(case consultant) [phone] ext [phone]
--- NOTE | 2021-03-25 14:32 | NUR ---
Per [employer] Grinder Operator Armida, she called [facility] and has not given ETA yet as of this time - I have communicated this with patient. Discharge instructions given to patient, patient verbalized understanding of all instructions made. DESTINY Perkins reported that patient ripped his peripheral IV catheter - patient confirmed this to me. Patient was discouraged in doing it. Instructed patient to ensure he has all his belongings with him before leaving the hospital. Patient currently sitting on his own wheelchair that was delivered to him today.
--- NOTE | 2021-03-25 15:25 | NUR ---
I asked Armida, Regulatory Assistant to refax the physician certification of services form after completing the 3 sections of the form that needed to complete. I spoke to Zara about this. I asked her to call us back if she did not get it within the next 10-15 minutes. Zara stated that patient's ride is scheduled today between 04:30 pm to 04:45 pm via [employer] transit. Patient was notified about this. Patient has been bored, wanted to wait outside for the ride. Patient was discouraged to do it as it is cold outside and that the ride will be available between 04:30pm to 04:45pm as I was told by Zara. Addendum: 03/25/21 at 1530 by Kyung North RN Patient on his wheelchair, requested to wheel himself by the hallway's window area. Patient was advised not to leave the hospital and to wait till the ride is here or getting close to arrival.
--- NOTE | 2021-03-25 16:37 | NUR ---
Patient was not in his room or the hallway, I went down to the lobby to see if I can find him and also to return his pill box with no pills inside. Patient stated that he was aware about the pharmacist have destroyed his pills inside. He said to me "it is what it is, Im not gonna make it a big deal about it!". Patient was asked "are you sure you really want to do this and wait outside for your ride because your ride arrival could be delayed!" He said to me "yes I will be fine!" Patient persistently want to be outside the lobby to wait for his ride. Patient was advised that he cannot come back to his room as he will be now discharged from us, he said he understand. Patient told me that if he need to go back, he will wheel himself back to the lobby. Decal Cutter who answered the phone about the situation. Charge nurse Waldron was notified about this event too. Addendum: 03/25/21 at 1656 by Kyung North RN Correction: Decal Cutter Armida who answered the phone was notified immediately about the situation
== END 2021-03-25 16:36 | disposition home health service (06) | DRG 305 ==
LOC: SUR 3N 03-20 09:29 → UNDOADMIN 03-20 09:29 → SUR 3N 03-20 10:31
PROVIDERS: ADMIT Orthopaedic Surgery; ATTEND Orthopaedic Surgery
PROC: 3E0234Z Introduction of Serum, Toxoid and Vaccine into Muscle, Percutaneous Approach (ICD-10-PCS; 2021-03-20)
PROC: 3E02340 Introduction of Influenza Vaccine into Muscle, Percutaneous Approach (ICD-10-PCS; 2021-03-20)
PROC: 0Y6J0Z1 Detachment at Left Lower Leg, High, Open Approach (ICD-10-PCS; principal; 2021-03-21 11:42)
DX: E11.52 Type 2 diabetes mellitus with diabetic peripheral angiopathy with gangrene (principal); T87.81 Dehiscence of amputation stump; L03.116 Cellulitis of left lower limb; Y83.8 Other surgical procedures as the cause of abnormal reaction of the patient, or of later complication, without mention of misadventure at the time of the procedure; Z20.822 Contact with and (suspected) exposure to COVID-19; Z23 Encounter for immunization; Z79.899 Other long term (current) drug therapy; Y92.89 Other specified places as the place of occurrence of the external cause
CPT/HCPCS: 36415; 80053; 82948; 83036; 85025; 87081; 87635; 90732; 93005; 94760; 97110; 97116; 97161; 97530; A4618; A6223; A6253; A6449; A7000; G0378; J0690; J0735; J1100; J1170; J1815; J2250; J2270; J2274; J2405; J2704; J2795; J3010; J3370; J3480; J3490; J7040; J7120

== ENCOUNTER 2023-11-21 15:47 | Inpatient (IN) | payer OTHER, MEDICAID ==
[~2023-11-21] VITALS: Ht 177.8 cm; Wt 138.0 kg
[~2023-11-21 15:47] MED LIST changes: -PREG300C19 PO; +PREG300C20 PO
[2023-11-21] MEDS ORDERED: vancomycin inj 1,000 MG in normal saline 250ml IV soln 250 ML IV STA (17:09)
[2023-11-21] MEDS ORDERED: ondansetron/PF 4mg/2ml inj IV PRN (17:10)
[2023-11-21] MEDS ORDERED: acetaminophen 325mg tablet PO PRN ×2 (17:10)
[2023-11-21] MEDS ORDERED: potassium Cl 20 mEq SR tablet PO PRN ×2 (17:10)
[2023-11-21] MEDS ORDERED: magnesium hydroxide 30ml (MOM) UD suspension PO PRN (17:10)
[2023-11-21] MEDS ORDERED: potassium Cl 40MEQ/1/2NS 520ml 520 ML IV PRN (17:10)
[2023-11-21] MEDS ORDERED: magnesium sulf-water 2g/50mL 50 ML IV PRN (17:10)
[2023-11-21] MEDS ORDERED: magnesium sulf-water 4G/100mL 100 ML IV PRN (17:10)
[2023-11-21] MEDS ORDERED: mag hydrox/Alum hydrox/simeth 30ml oral suspension PO PRN (17:10)
[2023-11-21 18:00] VITALS: BP 91/49; PULSE 67; RESP 17; TEMP 98.1; O2SAT 96
[2023-11-21] MEDS ORDERED: dextrose 50%-water 50ml dispensing syringe IV PRN ×2 (19:00)
[2023-11-21] MEDS ORDERED: DEXTROSE 15 GM of carb/4 tabs (each vial/BOTTLE has 4 tablets) PO PRN ×2 (19:00)
[2023-11-21] MEDS ORDERED: glucagon, human recombinant 1mg kit SUBCUT PRN (19:00)
[2023-11-21] MEDS: HYDROcodone/acetaminophen 10/325mg tab PO PRN (19:22)
[2023-11-21] MEDS: normal saline 1000ml 1,000 ML IV SCH (19:50)
[2023-11-21] MEDS: docusate sod 100mg capsule PO SCH (20:00)
[2023-11-21] MEDS: K and/or MAG REPLACEMENT MC SCH (20:00)
[2023-11-21 20:09] VITALS: RESP 16; O2SAT 98
[2023-11-21] MEDS: VANCOmycin 1250MG/NS 250ml Bag 250 ML IV SCH (20:38)
[2023-11-21] MEDS: apixaban 5mg tablet PO SCH (20:38)
[2023-11-21] MEDS: INSULIN LISPRO 100 UNIT/ML INSULN.PEN MULTI-DOSE SQ SCH (21:00)
[2023-11-21 21:42] VITALS: PULSE 74; RESP 16; O2SAT 91
[2023-11-21 22:48] VITALS: BP 128/65; PULSE 76; RESP 16; TEMP 98.2; O2SAT 93
[2023-11-21] MEDS: piperacillin/tazo 4.5gm/100ml 100 ML IV SCH (23:25)
[2023-11-22] VITALS (7 sets, daily range): BP systolic 105–117; BP diastolic 59–63; PULSE 68–86; RESP 16–18; TEMP 96.9–97.9; O2SAT 92–98
[2023-11-22 06:21] LABS: BASOPHILS # (AUTO) 0.1 X10'3 (0-0.2); BASOPHILS % (AUTO) 0.7 % (0-1); EOSINOPHILS # (AUTO) 0.2 X10'3 (0-0.9); EOSINOPHILS % (AUTO) 1.9 % (0-6); HEMATOCRIT 41.6 % (42.0-52.0); HEMOGLOBIN 13.9 g/dl (14.0-17.9); LYMPHOCYTES # (AUTO) 3.3 X10'3 (1.1-4.8); LYMPHOCYTES % (AUTO) 29.5 % (21-51); MEAN CORPUSCULAR HEMOGLOBIN 28.4 PG (27.0-31.0); MEAN CORPUSCULAR HGB CONC 33.4 g/dL (33.0-36.5); MEAN PLATELET VOLUME 8.7 FL (7.4-10.4); MONOCYTES # (AUTO) 0.9 X10'3 (0-0.9); MONOCYTES % (AUTO) 7.6 % (2-12); NEUTROPHILS # (AUTO) 6.8 X10'3 (1.8-7.7); NEUTROPHILS % (AUTO) 60.3 % (42-75); PLATELET COUNT 250 X10'3 (140-440); RED BLOOD COUNT 4.89 X10'6 (4.70-6.10); RED CELL DISTRIBUTION WIDTH 14.8 % (11.5-14.5); WHITE BLOOD COUNT 11.3 X10'3 (4.5-11.0)
[2023-11-22 07:08] LABS: ALANINE AMINOTRANSFERASE 17 U/L (12-78); ALBUMIN 3.3 G/DL (3.4-5.0); ALBUMIN/GLOBULIN RATIO 0.7 (1.1-1.5); ALKALINE PHOSPHATASE 121 IU/L (46-116); ANION GAP 5 (8-16); ASPARTATE AMINO TRANSFERASE 10 U/L (10-37); BILIRUBIN,TOTAL 0.6 MG/DL (0.1-1.0); BLOOD UREA NITROGEN 24 MG/DL (7-18); BUN/CREATININE RATIO 20.9 (10.0-20.0); CALCIUM 9.2 MG/DL (8.5-10.1); CHLORIDE 97 MMOL/L (99-107); CREATININE 1.15 MG/DL (0.60-1.10); GLUCOSE 166 MG/DL (70-104); MAGNESIUM 1.9 MG/DL (1.5-2.4); POTASSIUM 4.9 MMOL/L (3.5-5.1); SODIUM 127 MMOL/L (135-145); TOTAL CARBON DIOXIDE 25.2 MMOL/L (24-32); TOTAL PROTEIN 7.8 G/DL (6.4-8.2); eCRCL 67 ML/MIN; eGFR 64 ML/MIN
[2023-11-22] MEDS: ipratropium/albuterol 3ml nebule NEB PRN (07:39)
[2023-11-22] MEDS: budesonide 0.5mg/2ml UD nebule IH SCH (07:39)
[2023-11-22] MEDS: metoprolol tartrate 25mg tablet PO SCH (19:36)
[2023-11-22] MEDS: pregabalin 75mg capsule PO SCH (19:36)
[2023-11-22] MEDS ORDERED: apixaban 5mg tablet PO SCH (20:00)
[2023-11-22] MEDS: temazepam 15mg capsule PO ONE (22:07)
[2023-11-23] VITALS (7 sets, daily range): BP systolic 89–129; BP diastolic 50–62; PULSE 66–87; RESP 12–20; TEMP 97.1–98.1; O2SAT 91–94
[2023-11-23] MEDS ORDERED: VANCOMYCIN LEVEL IV ONE (06:30)
[2023-11-23] MEDS: VANCOMYCIN LEVEL IV ONE (06:30)
[2023-11-23 07:30] LABS: BASOPHILS # (AUTO) 0.1 X10'3 (0-0.2); EOSINOPHILS # (AUTO) 0.2 X10'3 (0-0.9); EOSINOPHILS % (AUTO) 2.8 % (0-6); HEMATOCRIT 38.7 % (42.0-52.0); HEMOGLOBIN 13.1 g/dl (14.0-17.9); LYMPHOCYTES # (AUTO) 2.7 X10'3 (1.1-4.8); LYMPHOCYTES % (AUTO) 30.7 % (21-51); MEAN CORPUSCULAR HEMOGLOBIN 28.7 PG (27.0-31.0); MEAN CORPUSCULAR HGB CONC 33.8 g/dL (33.0-36.5); MEAN CORPUSCULAR VOLUME 85.1 FL (78-98); MEAN PLATELET VOLUME 8.6 FL (7.4-10.4); MONOCYTES # (AUTO) 0.8 X10'3 (0-0.9); MONOCYTES % (AUTO) 9.3 % (2-12); NEUTROPHILS % (AUTO) 56.2 % (42-75); PLATELET COUNT 221 X10'3 (140-440); RED BLOOD COUNT 4.55 X10'6 (4.70-6.10); RED CELL DISTRIBUTION WIDTH 14.7 % (11.5-14.5); WHITE BLOOD COUNT 8.9 X10'3 (4.5-11.0)
[2023-11-23 08:05] LABS: ALANINE AMINOTRANSFERASE 18 U/L (12-78); ALBUMIN 3.3 G/DL (3.4-5.0); ALBUMIN/GLOBULIN RATIO 0.7 (1.1-1.5); ALKALINE PHOSPHATASE 111 IU/L (46-116); ANION GAP 5 (8-16); ASPARTATE AMINO TRANSFERASE 8 U/L (10-37); BILIRUBIN,TOTAL 0.5 MG/DL (0.1-1.0); BLOOD UREA NITROGEN 27 MG/DL (7-18); BUN/CREATININE RATIO 21.3 (10.0-20.0); CALCIUM 9.5 MG/DL (8.5-10.1); CHLORIDE 99 MMOL/L (99-107); CREATININE 1.27 MG/DL (0.60-1.10); GLUCOSE 179 MG/DL (70-104); MAGNESIUM 1.7 MG/DL (1.5-2.4); POTASSIUM 4.9 MMOL/L (3.5-5.1); SODIUM 130 MMOL/L (135-145); TOTAL CARBON DIOXIDE 26.2 MMOL/L (24-32); eCRCL 61 ML/MIN; eGFR 57 ML/MIN
[2023-11-23] MEDS: spironolactone 25 MG tablet PO SCH (08:54)
[2023-11-23] MEDS: atorvastatin 20mg tablet PO SCH (08:55)
[2023-11-23] MEDS: lisinopril 20mg tablet PO SCH (08:55)
[2023-11-23] MEDS: CefTRIAXone 2gm/D5W 50ml BAG 50 ML IV SCH (15:23)
[2023-11-23] MEDS: metroNIDAZOLE 500mg tablet PO SCH (21:34)
[2023-11-24] VITALS (11 sets, daily range): BP systolic 91–112; BP diastolic 48–64; PULSE 64–74; RESP 14–20; TEMP 96.8–98; O2SAT 92–94
[2023-11-24 06:37] LABS: BASOPHILS # (AUTO) 0.1 X10'3 (0-0.2); BASOPHILS % (AUTO) 1.1 % (0-1); EOSINOPHILS # (AUTO) 0.3 X10'3 (0-0.9); EOSINOPHILS % (AUTO) 2.9 % (0-6); HEMATOCRIT 36.4 % (42.0-52.0); HEMOGLOBIN 12.1 g/dl (14.0-17.9); LYMPHOCYTES % (AUTO) 33.8 % (21-51); MEAN CORPUSCULAR HEMOGLOBIN 28.3 PG (27.0-31.0); MEAN CORPUSCULAR HGB CONC 33.2 g/dL (33.0-36.5); MEAN CORPUSCULAR VOLUME 85.3 FL (78-98); MEAN PLATELET VOLUME 8.9 FL (7.4-10.4); MONOCYTES # (AUTO) 0.8 X10'3 (0-0.9); MONOCYTES % (AUTO) 8.6 % (2-12); NEUTROPHILS # (AUTO) 4.7 X10'3 (1.8-7.7); NEUTROPHILS % (AUTO) 53.6 % (42-75); PLATELET COUNT 224 X10'3 (140-440); RED BLOOD COUNT 4.27 X10'6 (4.70-6.10); RED CELL DISTRIBUTION WIDTH 14.8 % (11.5-14.5); WHITE BLOOD COUNT 8.8 X10'3 (4.5-11.0)
[2023-11-24 06:43] LABS: ALANINE AMINOTRANSFERASE 15 U/L (12-78); ALBUMIN 2.9 G/DL (3.4-5.0); ALBUMIN/GLOBULIN RATIO 0.7 (1.1-1.5); ALKALINE PHOSPHATASE 93 IU/L (46-116); ANION GAP 4 (8-16); ASPARTATE AMINO TRANSFERASE 11 U/L (10-37); BILIRUBIN,TOTAL 0.3 MG/DL (0.1-1.0); BLOOD UREA NITROGEN 30 MG/DL (7-18); BUN/CREATININE RATIO 25.6 (10.0-20.0); CHLORIDE 100 MMOL/L (99-107); CHOL/HDL RATIO 3.7 (0.00-4.99); CHOLESTEROL 136 MG/DL (0-200); CREATININE 1.17 MG/DL (0.60-1.10); GLUCOSE 192 MG/DL (70-104); HDL CHOLESTEROL 37 MG/DL (35-60); LDL CHOLESTEROL 84 MG/DL (50-100); MAGNESIUM 1.6 MG/DL (1.5-2.4); POTASSIUM 5.3 MMOL/L (3.5-5.1); SODIUM 132 MMOL/L (135-145); TOTAL CARBON DIOXIDE 27.9 MMOL/L (24-32); TOTAL PROTEIN 7.1 G/DL (6.4-8.2); TRIGLYCERIDES 106 MG/DL (20-135); eCRCL 66 ML/MIN; eGFR 63 ML/MIN
[2023-11-24 06:54] LABS: OSMOLALITY 291 MOSM/K (280-300)
[2023-11-24] MEDS: atorvastatin 20mg tablet PO SCH (20:48)
[2023-11-24] MEDS: insulin glargine (Lantus) pen - multi-dose SQ ONE (21:14)
[2023-11-25] VITALS (7 sets, daily range): BP systolic 111–121; BP diastolic 59–68; PULSE 64–77; RESP 16–20; TEMP 97.1–97.9; O2SAT 92–94
[2023-11-25 06:45] LABS: BASOPHILS # (AUTO) 0.1 X10'3 (0-0.2); BASOPHILS % (AUTO) 1.2 % (0-1); EOSINOPHILS # (AUTO) 0.3 X10'3 (0-0.9); EOSINOPHILS % (AUTO) 3.2 % (0-6); HEMATOCRIT 36.7 % (42.0-52.0); HEMOGLOBIN 12.2 g/dl (14.0-17.9); LYMPHOCYTES # (AUTO) 2.9 X10'3 (1.1-4.8); LYMPHOCYTES % (AUTO) 35.5 % (21-51); MEAN CORPUSCULAR HEMOGLOBIN 28.5 PG (27.0-31.0); MEAN CORPUSCULAR HGB CONC 33.3 g/dL (33.0-36.5); MEAN CORPUSCULAR VOLUME 85.7 FL (78-98); MEAN PLATELET VOLUME 8.4 FL (7.4-10.4); MONOCYTES # (AUTO) 0.7 X10'3 (0-0.9); NEUTROPHILS # (AUTO) 4.1 X10'3 (1.8-7.7); NEUTROPHILS % (AUTO) 51.1 % (42-75); PLATELET COUNT 222 X10'3 (140-440); RED BLOOD COUNT 4.28 X10'6 (4.70-6.10); WHITE BLOOD COUNT 8.1 X10'3 (4.5-11.0)
[2023-11-25 07:06] LABS: ALANINE AMINOTRANSFERASE 15 U/L (12-78); ALBUMIN/GLOBULIN RATIO 0.8 (1.1-1.5); ALKALINE PHOSPHATASE 91 IU/L (46-116); ANION GAP 4 (8-16); ASPARTATE AMINO TRANSFERASE 10 U/L (10-37); BILIRUBIN,TOTAL 0.3 MG/DL (0.1-1.0); BLOOD UREA NITROGEN 26 MG/DL (7-18); BUN/CREATININE RATIO 24.8 (10.0-20.0); CALCIUM 8.9 MG/DL (8.5-10.1); CHLORIDE 103 MMOL/L (99-107); CREATININE 1.05 MG/DL (0.60-1.10); GLUCOSE 153 MG/DL (70-104); MAGNESIUM 1.7 MG/DL (1.5-2.4); POTASSIUM 5.1 MMOL/L (3.5-5.1); SODIUM 133 MMOL/L (135-145); TOTAL CARBON DIOXIDE 25.8 MMOL/L (24-32); eCRCL 73 ML/MIN; eGFR 71 ML/MIN
[2023-11-25] MEDS: vancomycin/NS 1 GM ADD-VANTAGE 250 ML IV SCH (16:13)
[2023-11-25] MEDS: insulin glargine (Lantus) pen - multi-dose SQ SCH (20:11)
[2023-11-25] MEDS: Melatonin 3mg tablet PO SCH (22:08)
[2023-11-26] VITALS (7 sets, daily range): BP systolic 119–138; BP diastolic 56–79; PULSE 65–80; RESP 15–19; TEMP 97.7–98; O2SAT 93–95
[2023-11-26 06:15] LABS: ALANINE AMINOTRANSFERASE 15 U/L (12-78); ALBUMIN 3.2 G/DL (3.4-5.0); ALBUMIN/GLOBULIN RATIO 0.8 (1.1-1.5); ALKALINE PHOSPHATASE 94 IU/L (46-116); ANION GAP 7 (8-16); ASPARTATE AMINO TRANSFERASE 9 U/L (10-37); BILIRUBIN,TOTAL 0.2 MG/DL (0.1-1.0); BLOOD UREA NITROGEN 25 MG/DL (7-18); BUN/CREATININE RATIO 24.8 (10.0-20.0); CALCIUM 9.4 MG/DL (8.5-10.1); CHLORIDE 103 MMOL/L (99-107); CREATININE 1.01 MG/DL (0.60-1.10); GLUCOSE 184 MG/DL (70-104); MAGNESIUM 1.7 MG/DL (1.5-2.4); POTASSIUM 4.8 MMOL/L (3.5-5.1); SODIUM 137 MMOL/L (135-145); TOTAL CARBON DIOXIDE 27.2 MMOL/L (24-32); TOTAL PROTEIN 7.4 G/DL (6.4-8.2); eCRCL 76 ML/MIN; eGFR 74 ML/MIN
[2023-11-26 11:28] LABS: BASOPHILS % 1 % (0-2); EOSINOPHILS % (AUTO) 3 % (0-5); HEMATOCRIT 37.9 % (43.5-53.7); HEMOGLOBIN 12.5 G/DL (12.5-16.3); LYMPHOCYTES # (AUTO) 2.5 X10'3 (0.6-4.1); LYMPHOCYTES % 29 % (24-44); MEAN CORPUSCULAR HEMOGLOBIN 28.2 PG (27-31.2); MEAN CORPUSCULAR VOLUME 85.7 FL (81-97); MONOCYTES % 7 % (0-12); PLATELET COUNT 233 X10'3 (130-400); RED BLOOD COUNT 4.43 X10'6 (4.30-5.90); RED CELL DISTRIBUTION WIDTH 14.8 % (11-16); SEGMENTED NEUTROPHILS % 59 % (36-66); WHITE BLOOD COUNT 8.5 X10'3 (4.5-11.0)
[2023-11-26 11:29] LABS: BASOPHILS # (AUTO) 0.1 X10'3 (0-1); EOSINOPHILS # (AUTO) 0.3 X10'3 (0-0.9); MONOCYTES # (AUTO) 0.6 X10'3 (0-0.9)
[2023-11-26] MEDS: VANCOMYCIN LEVEL IV ONE (15:32)
[2023-11-26] MEDS: VANCOmycin 1250MG/NS 250ml Bag 250 ML IV SCH (20:16)
[2023-11-26] MEDS: temazepam 15mg capsule PO PRN (21:42)
[2023-11-27 06:00] VITALS: BP 110/61; PULSE 72; RESP 17; TEMP 98.4; O2SAT 95
[2023-11-27 07:24] VITALS: PULSE 74; RESP 18; O2SAT 97
[2023-11-27] MEDS ORDERED: bisacodyl 10mg suppository rectal RC PRN (07:50)
[2023-11-27 09:15] LABS: BASOPHILS # (AUTO) 0.1 X10'3 (0-0.2); BASOPHILS % (AUTO) 0.7 % (0-1); EOSINOPHILS # (AUTO) 0.2 X10'3 (0-0.9); EOSINOPHILS % (AUTO) 3.2 % (0-6); HEMATOCRIT 37.2 % (42.0-52.0); HEMOGLOBIN 12.3 g/dl (14.0-17.9); LYMPHOCYTES # (AUTO) 2.2 X10'3 (1.1-4.8); LYMPHOCYTES % (AUTO) 29.2 % (21-51); MEAN CORPUSCULAR HEMOGLOBIN 28.5 PG (27.0-31.0); MEAN CORPUSCULAR HGB CONC 33.2 g/dL (33.0-36.5); MEAN CORPUSCULAR VOLUME 85.7 FL (78-98); MEAN PLATELET VOLUME 8.4 FL (7.4-10.4); MONOCYTES # (AUTO) 0.6 X10'3 (0-0.9); MONOCYTES % (AUTO) 8.1 % (2-12); NEUTROPHILS # (AUTO) 4.5 X10'3 (1.8-7.7); NEUTROPHILS % (AUTO) 58.8 % (42-75); PLATELET COUNT 229 X10'3 (140-440); RED BLOOD COUNT 4.34 X10'6 (4.70-6.10); RED CELL DISTRIBUTION WIDTH 14.8 % (11.5-14.5); WHITE BLOOD COUNT 7.6 X10'3 (4.5-11.0)
[2023-11-27 09:54] LABS: ALANINE AMINOTRANSFERASE 34 U/L (12-78); ALBUMIN/GLOBULIN RATIO 0.8 (1.1-1.5); ALKALINE PHOSPHATASE 90 IU/L (46-116); ANION GAP 8 (8-16); ASPARTATE AMINO TRANSFERASE 22 U/L (10-37); BILIRUBIN,TOTAL 0.2 MG/DL (0.1-1.0); CALCIUM 8.9 MG/DL (8.5-10.1); CHLORIDE 103 MMOL/L (99-107); CREATININE 1.02 MG/DL (0.60-1.10); GLUCOSE 201 MG/DL (70-104); POTASSIUM 4.7 MMOL/L (3.5-5.1); SODIUM 137 MMOL/L (135-145); TOTAL CARBON DIOXIDE 26.2 MMOL/L (24-32); TOTAL PROTEIN 6.9 G/DL (6.4-8.2); eCRCL 76 ML/MIN; eGFR 74 ML/MIN
[2023-11-27 10:00] VITALS: BP 122/65; PULSE 80; RESP 18; TEMP 97.9; O2SAT 93
[2023-11-27 10:02] LABS: BLOOD UREA NITROGEN 21 MG/DL (7-18); BUN/CREATININE RATIO 20.6 (10.0-20.0)
[2023-11-27 18:00] VITALS: BP 125/83; PULSE 75; RESP 16; TEMP 97.2; O2SAT 94
[2023-11-27] MEDS: HYDROcodone/acetaminophen 5mg/325mg tablet PO PRN (20:31)
[2023-11-27 21:46] VITALS: PULSE 74; RESP 18; O2SAT 95
[2023-11-27 22:00] VITALS: BP 117/63; PULSE 77; RESP 16; TEMP 97.9; O2SAT 95
[2023-11-28 05:54] LABS: BASOPHILS # (AUTO) 0.1 X10'3 (0-0.2); BASOPHILS % (AUTO) 1.8 % (0-1); EOSINOPHILS # (AUTO) 0.2 X10'3 (0-0.9); EOSINOPHILS % (AUTO) 3.3 % (0-6); HEMATOCRIT 34.8 % (42.0-52.0); HEMOGLOBIN 11.5 g/dl (14.0-17.9); LYMPHOCYTES # (AUTO) 2.4 X10'3 (1.1-4.8); LYMPHOCYTES % (AUTO) 32.8 % (21-51); MEAN CORPUSCULAR HEMOGLOBIN 27.9 PG (27.0-31.0); MEAN CORPUSCULAR HGB CONC 32.9 g/dL (33.0-36.5); MEAN CORPUSCULAR VOLUME 84.7 FL (78-98); MEAN PLATELET VOLUME 8.1 FL (7.4-10.4); MONOCYTES # (AUTO) 0.6 X10'3 (0-0.9); MONOCYTES % (AUTO) 8.7 % (2-12); NEUTROPHILS # (AUTO) 3.9 X10'3 (1.8-7.7); NEUTROPHILS % (AUTO) 53.4 % (42-75); PLATELET COUNT 201 X10'3 (140-440); RED BLOOD COUNT 4.11 X10'6 (4.70-6.10); RED CELL DISTRIBUTION WIDTH 14.7 % (11.5-14.5); WHITE BLOOD COUNT 7.3 X10'3 (4.5-11.0)
[2023-11-28 06:00] VITALS: BP 130/82; PULSE 76; RESP 20; TEMP 97.9; O2SAT 94
[2023-11-28 06:18] LABS: ALANINE AMINOTRANSFERASE 35 U/L (12-78); ALBUMIN 2.9 G/DL (3.4-5.0); ALBUMIN/GLOBULIN RATIO 0.8 (1.1-1.5); ALKALINE PHOSPHATASE 82 IU/L (46-116); ANION GAP 5 (8-16); ASPARTATE AMINO TRANSFERASE 21 U/L (10-37); BILIRUBIN,TOTAL 0.2 MG/DL (0.1-1.0); BLOOD UREA NITROGEN 22 MG/DL (7-18); CALCIUM 8.8 MG/DL (8.5-10.1); CHLORIDE 104 MMOL/L (99-107); CREATININE 0.88 MG/DL (0.60-1.10); GLUCOSE 203 MG/DL (70-104); POTASSIUM 4.6 MMOL/L (3.5-5.1); SODIUM 136 MMOL/L (135-145); TOTAL PROTEIN 6.5 G/DL (6.4-8.2); eCRCL 88 ML/MIN; eGFR 87 ML/MIN
[2023-11-28 08:09] VITALS: PULSE 82; RESP 18; O2SAT 94
[2023-11-28] MEDS: VANCOMYCIN LEVEL IV ONE (08:30)
[2023-11-28 10:00] VITALS: BP 120/63; PULSE 81; RESP 16; TEMP 97.7; O2SAT 95
[2023-11-28] MEDS: DAPTOmycin inj. 750 MG in normal saline 100ml IV soln 100 ML IV SCH (12:37)
[2023-11-28 12:48] LABS: CREATINE KINASE 70 U/L (39-308)
[2023-11-28 18:00] VITALS: BP 117/57; PULSE 87; RESP 15; TEMP 97.8; O2SAT 95
[2023-11-28 20:05] VITALS: PULSE 86; RESP 16; O2SAT 93
[2023-11-29] VITALS (8 sets, daily range): BP systolic 116–132; BP diastolic 50–76; PULSE 84–91; RESP 14–18; TEMP 97.8–98; O2SAT 93–96
[2023-11-29 05:59] LABS: BASOPHILS # (AUTO) 0.1 X10'3 (0-0.2); BASOPHILS % (AUTO) 0.8 % (0-1); EOSINOPHILS # (AUTO) 0.3 X10'3 (0-0.9); EOSINOPHILS % (AUTO) 3.2 % (0-6); HEMATOCRIT 36.8 % (42.0-52.0); HEMOGLOBIN 12.2 g/dl (14.0-17.9); LYMPHOCYTES # (AUTO) 2.4 X10'3 (1.1-4.8); LYMPHOCYTES % (AUTO) 25.5 % (21-51); MEAN CORPUSCULAR HEMOGLOBIN 28.1 PG (27.0-31.0); MEAN CORPUSCULAR HGB CONC 33.1 g/dL (33.0-36.5); MONOCYTES # (AUTO) 0.7 X10'3 (0-0.9); MONOCYTES % (AUTO) 7.8 % (2-12); NEUTROPHILS % (AUTO) 62.7 % (42-75); PLATELET COUNT 229 X10'3 (140-440); RED BLOOD COUNT 4.32 X10'6 (4.70-6.10); RED CELL DISTRIBUTION WIDTH 14.7 % (11.5-14.5); WHITE BLOOD COUNT 9.5 X10'3 (4.5-11.0)
[2023-11-29 06:03] LABS: ALANINE AMINOTRANSFERASE 48 U/L (12-78); ALBUMIN 3.1 G/DL (3.4-5.0); ALBUMIN/GLOBULIN RATIO 0.8 (1.1-1.5); ALKALINE PHOSPHATASE 85 IU/L (46-116); ANION GAP 7 (8-16); ASPARTATE AMINO TRANSFERASE 34 U/L (10-37); BILIRUBIN,TOTAL 0.3 MG/DL (0.1-1.0); BLOOD UREA NITROGEN 21 MG/DL (7-18); BUN/CREATININE RATIO 25.6 (10.0-20.0); CALCIUM 8.8 MG/DL (8.5-10.1); CHLORIDE 104 MMOL/L (99-107); CREATININE 0.82 MG/DL (0.60-1.10); GLUCOSE 168 MG/DL (70-104); POTASSIUM 4.5 MMOL/L (3.5-5.1); SODIUM 139 MMOL/L (135-145); TOTAL CARBON DIOXIDE 28.1 MMOL/L (24-32); eCRCL 94 ML/MIN; eGFR > 90 ML/MIN
[2023-11-30] VITALS (7 sets, daily range): BP systolic 110–162; BP diastolic 53–79; PULSE 69–93; RESP 16–21; TEMP 97.5–98.3; O2SAT 95–96
[2023-11-30 03:21] LABS: BASOPHILS # (AUTO) 0.1 X10'3 (0-0.2); BASOPHILS % (AUTO) 0.7 % (0-1); EOSINOPHILS # (AUTO) 0.3 X10'3 (0-0.9); EOSINOPHILS % (AUTO) 2.9 % (0-6); HEMOGLOBIN 11.4 g/dl (14.0-17.9); LYMPHOCYTES # (AUTO) 2.5 X10'3 (1.1-4.8); LYMPHOCYTES % (AUTO) 26.3 % (21-51); MEAN CORPUSCULAR HGB CONC 32.7 g/dL (33.0-36.5); MEAN CORPUSCULAR VOLUME 85.6 FL (78-98); MEAN PLATELET VOLUME 7.8 FL (7.4-10.4); MONOCYTES # (AUTO) 0.8 X10'3 (0-0.9); MONOCYTES % (AUTO) 8.4 % (2-12); NEUTROPHILS # (AUTO) 5.9 X10'3 (1.8-7.7); NEUTROPHILS % (AUTO) 61.7 % (42-75); PLATELET COUNT 213 X10'3 (140-440); RED BLOOD COUNT 4.08 X10'6 (4.70-6.10); RED CELL DISTRIBUTION WIDTH 15.3 % (11.5-14.5); WHITE BLOOD COUNT 9.5 X10'3 (4.5-11.0)
[2023-11-30 03:32] LABS: ALANINE AMINOTRANSFERASE 58 U/L (12-78); ALBUMIN 2.8 G/DL (3.4-5.0); ALBUMIN/GLOBULIN RATIO 0.8 (1.1-1.5); ALKALINE PHOSPHATASE 74 IU/L (46-116); ANION GAP 5 (8-16); ASPARTATE AMINO TRANSFERASE 38 U/L (10-37); BILIRUBIN,TOTAL 0.2 MG/DL (0.1-1.0); BLOOD UREA NITROGEN 25 MG/DL (7-18); BUN/CREATININE RATIO 26.9 (10.0-20.0); CALCIUM 9.1 MG/DL (8.5-10.1); CHLORIDE 103 MMOL/L (99-107); CREATININE 0.93 MG/DL (0.60-1.10); GLUCOSE 186 MG/DL (70-104); POTASSIUM 4.3 MMOL/L (3.5-5.1); SODIUM 139 MMOL/L (135-145); TOTAL CARBON DIOXIDE 30.6 MMOL/L (24-32); TOTAL PROTEIN 6.4 G/DL (6.4-8.2); eCRCL 83 ML/MIN; eGFR 82 ML/MIN
[2023-12-01] VITALS (9 sets, daily range): BP systolic 123–140; BP diastolic 69–82; PULSE 78–88; RESP 16–19; TEMP 97–97.9; O2SAT 93–97
[2023-12-01 06:02] LABS: BASOPHILS # (AUTO) 0.1 X10'3 (0-0.2); BASOPHILS % (AUTO) 0.8 % (0-1); EOSINOPHILS # (AUTO) 0.3 X10'3 (0-0.9); EOSINOPHILS % (AUTO) 2.9 % (0-6); HEMATOCRIT 35.3 % (42.0-52.0); HEMOGLOBIN 11.5 g/dl (14.0-17.9); LYMPHOCYTES # (AUTO) 2.7 X10'3 (1.1-4.8); LYMPHOCYTES % (AUTO) 26.1 % (21-51); MEAN CORPUSCULAR HEMOGLOBIN 27.6 PG (27.0-31.0); MEAN CORPUSCULAR HGB CONC 32.6 g/dL (33.0-36.5); MEAN CORPUSCULAR VOLUME 84.9 FL (78-98); MEAN PLATELET VOLUME 8.3 FL (7.4-10.4); MONOCYTES # (AUTO) 0.8 X10'3 (0-0.9); MONOCYTES % (AUTO) 7.4 % (2-12); NEUTROPHILS # (AUTO) 6.6 X10'3 (1.8-7.7); NEUTROPHILS % (AUTO) 62.8 % (42-75); PLATELET COUNT 219 X10'3 (140-440); RED BLOOD COUNT 4.16 X10'6 (4.70-6.10); RED CELL DISTRIBUTION WIDTH 14.5 % (11.5-14.5); WHITE BLOOD COUNT 10.5 X10'3 (4.5-11.0)
[2023-12-01 07:14] LABS: ALANINE AMINOTRANSFERASE 59 U/L (12-78); ALBUMIN/GLOBULIN RATIO 0.8 (1.1-1.5); ALKALINE PHOSPHATASE 74 IU/L (46-116); ANION GAP 6 (8-16); ASPARTATE AMINO TRANSFERASE 34 U/L (10-37); BILIRUBIN,TOTAL 0.2 MG/DL (0.1-1.0); BLOOD UREA NITROGEN 24 MG/DL (7-18); CALCIUM 8.8 MG/DL (8.5-10.1); CHLORIDE 103 MMOL/L (99-107); GLUCOSE 175 MG/DL (70-104); POTASSIUM 4.3 MMOL/L (3.5-5.1); SODIUM 138 MMOL/L (135-145); TOTAL CARBON DIOXIDE 28.6 MMOL/L (24-32); TOTAL PROTEIN 6.8 G/DL (6.4-8.2); eCRCL 77 ML/MIN; eGFR 75 ML/MIN
[2023-12-02 08:00] VITALS: RESP 18
[2023-12-02 08:04] VITALS: BP 140/86; PULSE 88; RESP 18; TEMP 97.1; O2SAT 97
[2023-12-02] MEDS ORDERED: HYDROcodone/acetaminophen 5mg/325mg tablet PO PRN (10:25)
[2023-12-02 10:49] VITALS: BP 146/77; PULSE 90; RESP 16; TEMP 97.7; O2SAT 98
[2023-12-02] MEDS: morphine 2 MG/ML inj. syringe IV PRN (11:24)
[2023-12-02 18:00] VITALS: BP 119/54; PULSE 81; RESP 16; TEMP 97.9; O2SAT 93
[2023-12-02 19:32] VITALS: PULSE 88; RESP 16; O2SAT 0
[2023-12-02 22:00] VITALS: BP 125/68; PULSE 81; RESP 14; TEMP 98.1; O2SAT 93
[2023-12-03 06:49] VITALS: BP 125/68; PULSE 81; RESP 14; TEMP 98.1; O2SAT 93
[2023-12-03 08:00] VITALS: RESP 18
[2023-12-03 18:00] VITALS: BP 101/59; PULSE 77; RESP 16; TEMP 97.5; O2SAT 100
[2023-12-03 19:27] VITALS: PULSE 82; RESP 18; O2SAT 97
[2023-12-03 22:00] VITALS: BP 124/75; PULSE 85; RESP 19; TEMP 97.8; O2SAT 97
[2023-12-04] VITALS (7 sets, daily range): BP systolic 128–148; BP diastolic 58–102; PULSE 78–86; RESP 15–19; TEMP 97.2–98.3; O2SAT 93–96
[2023-12-04] MEDS: HYDROcodone/acetaminophen 10/325mg tab PO PRN ×2 (08:00→14:12)
[2023-12-04] MEDS: INSULIN LISPRO 100 UNIT/ML INSULN.PEN MULTI-DOSE SQ SCH (17:42)
[2023-12-05] VITALS (7 sets, daily range): BP systolic 129–131; BP diastolic 71–77; PULSE 79–91; RESP 16–20; TEMP 96.7–97.8; O2SAT 95–98
[2023-12-05 03:13] LABS: CREATINE KINASE 129 U/L (39-308)
[2023-12-06 06:15] LABS: BASOPHILS # (AUTO) 0.1 X10'3 (0-0.2); EOSINOPHILS # (AUTO) 0.3 X10'3 (0-0.9); EOSINOPHILS % (AUTO) 2.8 % (0-6); HEMATOCRIT 36.8 % (42.0-52.0); HEMOGLOBIN 12.3 g/dl (14.0-17.9); LYMPHOCYTES % (AUTO) 21.7 % (21-51); MEAN CORPUSCULAR HEMOGLOBIN 28.3 PG (27.0-31.0); MEAN CORPUSCULAR HGB CONC 33.4 g/dL (33.0-36.5); MEAN CORPUSCULAR VOLUME 84.7 FL (78-98); MEAN PLATELET VOLUME 7.9 FL (7.4-10.4); MONOCYTES # (AUTO) 0.7 X10'3 (0-0.9); MONOCYTES % (AUTO) 8.1 % (2-12); NEUTROPHILS % (AUTO) 66.4 % (42-75); PLATELET COUNT 197 X10'3 (140-440); RED BLOOD COUNT 4.35 X10'6 (4.70-6.10); WHITE BLOOD COUNT 9.1 X10'3 (4.5-11.0)
[2023-12-06 06:30] VITALS: BP 114/64; PULSE 83; RESP 16; TEMP 97.9; O2SAT 98
[2023-12-06 06:36] LABS: ALANINE AMINOTRANSFERASE 45 U/L (12-78); ALBUMIN/GLOBULIN RATIO 0.8 (1.1-1.5); ALKALINE PHOSPHATASE 65 IU/L (46-116); ANION GAP 8 (8-16); ASPARTATE AMINO TRANSFERASE 30 U/L (10-37); BILIRUBIN,TOTAL 0.4 MG/DL (0.1-1.0); BLOOD UREA NITROGEN 11 MG/DL (7-18); BUN/CREATININE RATIO 13.4 (10.0-20.0); CALCIUM 8.9 MG/DL (8.5-10.1); CHLORIDE 103 MMOL/L (99-107); CREATININE 0.82 MG/DL (0.60-1.10); GLUCOSE 202 MG/DL (70-104); SODIUM 138 MMOL/L (135-145); TOTAL CARBON DIOXIDE 27.3 MMOL/L (24-32); TOTAL PROTEIN 6.8 G/DL (6.4-8.2); eCRCL 94 ML/MIN; eGFR > 90 ML/MIN
[2023-12-06 08:00] VITALS: RESP 16; O2SAT 98
[2023-12-06 10:00] VITALS: BP 128/72; PULSE 80; RESP 17; TEMP 98.3; O2SAT 98
[2023-12-06] MEDS ORDERED: ATOR-2 PO (11:02)
[2023-12-06] MEDS ORDERED: NEED-137 SUBCUT (11:02)
[2023-12-06] MEDS ORDERED: HYDR-3972 PO (11:02)
[2023-12-06] MEDS ORDERED: METR-159 PO (11:02)
[2023-12-06] MEDS ORDERED: INSU300I3 SQ (11:02)
== END 2023-12-06 12:29 | disposition home or self-care (01) | DRG 638 ==
LOC: UNDOADMIN 17:33 → ORTHO 4S 17:33
PROVIDERS: ADMIT Family Medicine; ATTEND Family Medicine
PROC: 02HV33Z Insertion of Infusion Device into Superior Vena Cava, Percutaneous Approach (ICD-10-PCS; principal; 2023-11-26)
PROC: B548ZZA Ultrasonography of Superior Vena Cava, Guidance (ICD-10-PCS; 2023-11-26)
DX: E11.69 Type 2 diabetes mellitus with other specified complication (principal); E87.1 Hypo-osmolality and hyponatremia; M86.8X7 Other osteomyelitis, ankle and foot; L97.429 Non-pressure chronic ulcer of left heel and midfoot with unspecified severity; E11.00 Type 2 diabetes mellitus with hyperosmolarity without nonketotic hyperglycemic-hyperosmolar coma (NKHHC); N17.9 Acute kidney failure, unspecified; D72.829 Elevated white blood cell count, unspecified; E11.42 Type 2 diabetes mellitus with diabetic polyneuropathy; E11.621 Type 2 diabetes mellitus with foot ulcer; E11.622 Type 2 diabetes mellitus with other skin ulcer; E78.5 Hyperlipidemia, unspecified; F17.210 Nicotine dependence, cigarettes, uncomplicated; I10 Essential (primary) hypertension; I25.10 Atherosclerotic heart disease of native coronary artery without angina pectoris; I25.2 Old myocardial infarction; Z79.01 Long term (current) use of anticoagulants; Z79.4 Long term (current) use of insulin; Z79.84 Long term (current) use of oral hypoglycemic drugs; Z79.899 Other long term (current) drug therapy; Z86.718 Personal history of other venous thrombosis and embolism; Z89.511 Acquired absence of right leg below knee; Z95.5 Presence of coronary angioplasty implant and graft
CPT/HCPCS: 36415; 36569; 70450; 72125; 76942; 78315; 80053; 80061; 80202; 82550; 82948; 83036; 83605; 83735; 83930; 85025; 87040; 87081; 93925; 93970; 94640; 94760; 97110; 97116; 97162; 97530; A4333; A4649; A6196; A6253; A6258; A6446; A6449; A9503; C1751; G0378; J0696; J0878; J1815; J2270; J2543; J3370; J7030

== ENCOUNTER 2024-03-12 14:55 | Inpatient (IN) | payer OTHER, MEDICAID ==
[~2024-03-12] VITALS: Ht 180.3 cm; Wt 125.0 kg
[~2024-03-12 14:55] MED LIST changes: +ATOR-2 PO; -ATOR40TA72 PO; +INSU300I3 SQ; -METO25TA6 PO; +METR-159 PO; +NEED-137 SUBCUT; -SPIR25TA5 PO
[2024-03-12] MEDS ORDERED: vancomycin inj 2,000 MG in normal saline 500ml IV soln 500 ML IV ONE (15:30)
[2024-03-12 16:36] LABS: BASOPHILS # (AUTO) 0.1 X10'3 (0-0.2); BASOPHILS % (AUTO) 0.6 % (0-1); EOSINOPHILS # (AUTO) 0.1 X10'3 (0-0.9); HEMATOCRIT 41.9 % (42.0-52.0); LYMPHOCYTES # (AUTO) 2.5 X10'3 (1.1-4.8); LYMPHOCYTES % (AUTO) 18.6 % (21-51); MEAN CORPUSCULAR HEMOGLOBIN 28.3 PG (27.0-31.0); MEAN CORPUSCULAR HGB CONC 33.4 g/dL (33.0-36.5); MEAN CORPUSCULAR VOLUME 84.6 FL (78-98); MEAN PLATELET VOLUME 8.1 FL (7.4-10.4); MONOCYTES # (AUTO) 0.9 X10'3 (0-0.9); MONOCYTES % (AUTO) 6.4 % (2-12); NEUTROPHILS # (AUTO) 9.8 X10'3 (1.8-7.7); NEUTROPHILS % (AUTO) 73.4 % (42-75); PLATELET COUNT 344 X10'3 (140-440); RED BLOOD COUNT 4.95 X10'6 (4.70-6.10); RED CELL DISTRIBUTION WIDTH 14.4 % (11.5-14.5); WHITE BLOOD COUNT 13.4 X10'3 (4.5-11.0)
[2024-03-12 16:53] LABS: ALANINE AMINOTRANSFERASE 22 U/L (12-78); ALBUMIN 2.9 G/DL (3.4-5.0); ALBUMIN/GLOBULIN RATIO 0.6 (1.1-1.5); ALKALINE PHOSPHATASE 89 IU/L (46-116); ANION GAP 6 (8-16); ASPARTATE AMINO TRANSFERASE 14 U/L (10-37); BILIRUBIN,TOTAL 0.4 MG/DL (0.1-1.0); BLOOD UREA NITROGEN 17 MG/DL (7-18); BUN/CREATININE RATIO 18.3 (10.0-20.0); C-REACTIVE PROTEIN 5.93 MG/DL (0.0-0.5); CALCIUM 8.9 MG/DL (8.5-10.1); CHLORIDE 96 MMOL/L (99-107); CREATININE 0.93 MG/DL (0.60-1.10); GLUCOSE 129 MG/DL (70-104); MAGNESIUM 1.6 MG/DL (1.5-2.4); POTASSIUM 4.3 MMOL/L (3.5-5.1); SODIUM 134 MMOL/L (135-145); TOTAL CARBON DIOXIDE 32.4 MMOL/L (24-32); eCRCL 84 ML/MIN; eGFR 82 ML/MIN
[2024-03-12] MEDS: CefTRIAXone 2gm/D5W 50ml BAG 50 ML IV ONE (17:27)
[2024-03-12] MEDS: normal saline 1000ml 1,000 ML IV ONE (17:27)
[2024-03-12] MEDS: ondansetron/PF 4mg/2ml inj IV ONE (17:32)
[2024-03-12] MEDS: HYDROmorphone 1 mg/ml syringe IV ONE (17:32)
[2024-03-12] MEDS: VANCOMYCIN 2GM/400ML H20 (PEG) 400 ML IV ONE (17:40)
[2024-03-12] MEDS ORDERED: magnesium sulf-water 2g/50mL 50 ML IV PRN (18:10)
[2024-03-12] MEDS ORDERED: magnesium hydroxide 30ml (MOM) UD suspension PO PRN (18:10)
[2024-03-12] MEDS ORDERED: mag hydrox/Alum hydrox/simeth 30ml oral suspension PO PRN (18:10)
[2024-03-12] MEDS ORDERED: ondansetron/PF 4mg/2ml inj IV PRN (18:10)
[2024-03-12] MEDS ORDERED: acetaminophen 325mg tablet PO PRN ×2 (18:10)
[2024-03-12] MEDS ORDERED: potassium Cl 20 mEq SR tablet PO PRN ×2 (18:10)
[2024-03-12] MEDS ORDERED: magnesium Cl slow-release 64mg tablet PO PRN (18:10)
[2024-03-12] MEDS ORDERED: magnesium sulf-water 4G/100mL 100 ML IV PRN (18:10)
[2024-03-12] MEDS ORDERED: potassium Cl 40MEQ/1/2NS 520ml 520 ML IV PRN (18:10)
[2024-03-12 18:32] LABS: APTT 30 SECONDS (22-32); PROTHROMBIN TIME 10.9 SECONDS (9.0-12.0)
[2024-03-12 18:35] LABS: HEMOGLOBIN A1C 8.8 % (4.5-6.2)
[2024-03-12 18:43] LABS: PRO BRAIN NATRIURETIC PEPTIDE 149 PG/ML (0-125); THYROID STIMULATING HORMONE 1.32 ulU/ml (0.34-4.50)
[2024-03-12] MEDS: docusate sod 100mg capsule PO SCH (20:00)
[2024-03-12] MEDS: K and/or MAG REPLACEMENT MC SCH (20:00)
[2024-03-12] MEDS ORDERED: dextrose 50%-water 50ml dispensing syringe IV PRN ×2 (20:25)
[2024-03-12] MEDS ORDERED: DEXTROSE 15 GM of carb/4 tabs (each vial/BOTTLE has 4 tablets) PO PRN ×2 (20:25)
[2024-03-12] MEDS ORDERED: glucagon, human recombinant 1mg kit SUBCUT PRN (20:25)
[2024-03-12] MEDS: normal saline 1000ml 1,000 ML IV SCH (20:43)
[2024-03-12] MEDS ORDERED: HYDROcodone/acetaminophen 5mg/325mg tablet PO PRN (20:50)
[2024-03-12 22:00] VITALS: BP 111/70; PULSE 85; RESP 18; O2SAT 95
[2024-03-12] MEDS: INSULIN LISPRO 100 UNIT/ML INSULN.PEN MULTI-DOSE SQ SCH (23:47)
[2024-03-13] MEDS: HYDROcodone/acetaminophen 10/325mg tab PO ONE (00:12)
[2024-03-13] MEDS: piperacillin/tazo 3.375gm/50ml 50 ML IV SCH (02:31)
[2024-03-13] MEDS: VANCOMYCIN 1GM 200ML H20 (PEG) 200 ML IV SCH (02:32)
[2024-03-13] MEDS: HYDROcodone/acetaminophen 10/325mg tab PO PRN (05:57)
[2024-03-13 06:00] VITALS: BP 96/57; PULSE 72; RESP 14; TEMP 98.3; O2SAT 92
[2024-03-13 06:27] LABS: BASOPHILS # (AUTO) 0.1 X10'3 (0-0.2); BASOPHILS % (AUTO) 0.9 % (0-1); EOSINOPHILS # (AUTO) 0.2 X10'3 (0-0.9); EOSINOPHILS % (AUTO) 1.4 % (0-6); HEMATOCRIT 39.1 % (42.0-52.0); HEMOGLOBIN 12.8 g/dl (14.0-17.9); LYMPHOCYTES # (AUTO) 2.6 X10'3 (1.1-4.8); LYMPHOCYTES % (AUTO) 23.3 % (21-51); MEAN CORPUSCULAR HGB CONC 32.7 g/dL (33.0-36.5); MEAN CORPUSCULAR VOLUME 85.7 FL (78-98); MEAN PLATELET VOLUME 7.7 FL (7.4-10.4); MONOCYTES # (AUTO) 0.9 X10'3 (0-0.9); MONOCYTES % (AUTO) 8.2 % (2-12); NEUTROPHILS # (AUTO) 7.5 X10'3 (1.8-7.7); NEUTROPHILS % (AUTO) 66.2 % (42-75); PLATELET COUNT 303 X10'3 (140-440); RED BLOOD COUNT 4.57 X10'6 (4.70-6.10); RED CELL DISTRIBUTION WIDTH 14.5 % (11.5-14.5); WHITE BLOOD COUNT 11.3 X10'3 (4.5-11.0)
[2024-03-13 07:01] LABS: ALANINE AMINOTRANSFERASE 18 U/L (12-78); ALBUMIN 2.5 G/DL (3.4-5.0); ALBUMIN/GLOBULIN RATIO 0.6 (1.1-1.5); ALKALINE PHOSPHATASE 82 IU/L (46-116); ANION GAP 5 (8-16); ASPARTATE AMINO TRANSFERASE 19 U/L (10-37); BILIRUBIN,TOTAL 0.4 MG/DL (0.1-1.0); BLOOD UREA NITROGEN 17 MG/DL (7-18); BUN/CREATININE RATIO 18.3 (10.0-20.0); CALCIUM 8.9 MG/DL (8.5-10.1); CHLORIDE 99 MMOL/L (99-107); CHOL/HDL RATIO 2.9 (0.00-4.99); CHOLESTEROL 100 MG/DL (0-200); CREATININE 0.93 MG/DL (0.60-1.10); GLUCOSE 158 MG/DL (70-104); HDL CHOLESTEROL 34 MG/DL (35-60); LDL CHOLESTEROL 55 MG/DL (50-100); MAGNESIUM 1.8 MG/DL (1.5-2.4); POTASSIUM 4.7 MMOL/L (3.5-5.1); SODIUM 135 MMOL/L (135-145); TOTAL CARBON DIOXIDE 30.6 MMOL/L (24-32); TRIGLYCERIDES 95 MG/DL (20-135); eCRCL 84 ML/MIN; eGFR 82 ML/MIN
[2024-03-13] MEDS: pantoprazole 40 MG vial IV SCH (07:45)
[2024-03-13] MEDS: apixaban 5mg tablet PO SCH (07:46)
[2024-03-13] MEDS: atorvastatin 20mg tablet PO SCH (07:47)
[2024-03-13] MEDS: pregabalin 75mg capsule PO SCH ×2 (07:47→20:05)
[2024-03-13] MEDS: lactobacillus rhamnosus 10,000 MMU CELLS/CAPSULE PO SCH (07:48)
[2024-03-13] MEDS: lisinopril 20mg tablet PO SCH (07:48)
[2024-03-13] MEDS ORDERED: TRAZODONE HCL PO SCH (08:00)
[2024-03-13] MEDS ORDERED: enoxaparin 40mg/0.4ml syringe SUBCUT SCH (08:00)
[2024-03-13 08:01] VITALS: RESP 72; O2SAT 92
[2024-03-13 10:00] VITALS: BP 87/50; PULSE 74; RESP 16; TEMP 97; O2SAT 93
[2024-03-13] MEDS: MULTIVIT-MIN/FERROUS GLUCONATE 9 MG/15 ML LIQUID PO SCH (11:57)
[2024-03-13] MEDS: zinc sulfate 220mg capsule PO SCH (12:00)
[2024-03-13] MEDS: ascorbic acid 500mg tablet PO SCH (12:00)
[2024-03-13] MEDS: VANCOMYCIN LEVEL IV ONE (15:42)
[2024-03-13] MEDS ORDERED: GADOTERATE MEGLUMINE 7.5 MMOL/15 ML VIAL IV ONE (15:49)
[2024-03-13 18:00] VITALS: BP 108/59; PULSE 81; RESP 14; TEMP 97.4; O2SAT 93
[2024-03-13] MEDS: JUVEN Smoothie Arginine/Glut./Ca2+Bmb (Juven 19.3pkt) 240ml cup PO SCH (18:25)
[2024-03-13] MEDS ORDERED: pregabalin 75mg capsule PO SCH (21:00)
[2024-03-13 22:00] VITALS: BP 116/56; PULSE 83; RESP 16; TEMP 97.2; O2SAT 95
[2024-03-14 06:00] VITALS: BP 115/63; PULSE 88; RESP 16; TEMP 98.1; O2SAT 92
[2024-03-14] MEDS: VANCOMYCIN LEVEL IV NR (07:30)
[2024-03-14 08:00] VITALS: RESP 20; O2SAT 92
[2024-03-14 08:11] LABS: BASOPHILS # (AUTO) 0.1 X10'3 (0-0.2); BASOPHILS % (AUTO) 0.8 % (0-1); EOSINOPHILS # (AUTO) 0.1 X10'3 (0-0.9); EOSINOPHILS % (AUTO) 1.4 % (0-6); HEMATOCRIT 43.5 % (42.0-52.0); HEMOGLOBIN 14.5 g/dl (14.0-17.9); LYMPHOCYTES # (AUTO) 1.8 X10'3 (1.1-4.8); LYMPHOCYTES % (AUTO) 17.8 % (21-51); MEAN CORPUSCULAR HEMOGLOBIN 28.4 PG (27.0-31.0); MEAN CORPUSCULAR HGB CONC 33.3 g/dL (33.0-36.5); MEAN CORPUSCULAR VOLUME 85.3 FL (78-98); MEAN PLATELET VOLUME 7.7 FL (7.4-10.4); MONOCYTES # (AUTO) 0.6 X10'3 (0-0.9); MONOCYTES % (AUTO) 5.8 % (2-12); NEUTROPHILS # (AUTO) 7.5 X10'3 (1.8-7.7); NEUTROPHILS % (AUTO) 74.2 % (42-75); PLATELET COUNT 330 X10'3 (140-440); RED CELL DISTRIBUTION WIDTH 14.4 % (11.5-14.5); WHITE BLOOD COUNT 10.2 X10'3 (4.5-11.0)
[2024-03-14 08:24] LABS: ALANINE AMINOTRANSFERASE 22 U/L (12-78); ALBUMIN/GLOBULIN RATIO 0.6 (1.1-1.5); ALKALINE PHOSPHATASE 92 IU/L (46-116); ANION GAP 6 (8-16); ASPARTATE AMINO TRANSFERASE 11 U/L (10-37); BILIRUBIN,TOTAL 0.3 MG/DL (0.1-1.0); BLOOD UREA NITROGEN 17 MG/DL (7-18); BUN/CREATININE RATIO 16.7 (10.0-20.0); CALCIUM 9.4 MG/DL (8.5-10.1); CHLORIDE 99 MMOL/L (99-107); CREATININE 1.02 MG/DL (0.60-1.10); GLUCOSE 203 MG/DL (70-104); MAGNESIUM 1.8 MG/DL (1.5-2.4); POTASSIUM 4.7 MMOL/L (3.5-5.1); SODIUM 136 MMOL/L (135-145); TOTAL CARBON DIOXIDE 31.3 MMOL/L (24-32); TOTAL PROTEIN 8.3 G/DL (6.4-8.2); VANCOMYCIN,TROUGH 22.7 ug/mL (10.0-20.0); eCRCL 77 ML/MIN; eGFR 73 ML/MIN
[2024-03-14 10:00] VITALS: BP 125/69; PULSE 82; RESP 20; TEMP 97.4; O2SAT 92
[2024-03-14] MEDS: VANCOMYCIN/WATER FOR INJ (PEG) 750MG/150 ML IVPB IV SCH (10:46)
[2024-03-14 18:00] VITALS: BP 97/55; PULSE 88; RESP 16; TEMP 98.2; O2SAT 95
[2024-03-14 22:00] VITALS: BP 111/57; PULSE 80; RESP 16; TEMP 97.5; O2SAT 96
[2024-03-15 06:00] VITALS: BP 92/54; PULSE 79; RESP 16; TEMP 98.2; O2SAT 93
[2024-03-15 07:47] LABS: BASOPHILS % (AUTO) 0.4 % (0-1); EOSINOPHILS # (AUTO) 0.1 X10'3 (0-0.9); EOSINOPHILS % (AUTO) 0.9 % (0-6); HEMATOCRIT 40.8 % (42.0-52.0); HEMOGLOBIN 13.6 g/dl (14.0-17.9); LYMPHOCYTES % (AUTO) 19.8 % (21-51); MEAN CORPUSCULAR HEMOGLOBIN 28.3 PG (27.0-31.0); MEAN CORPUSCULAR HGB CONC 33.4 g/dL (33.0-36.5); MEAN CORPUSCULAR VOLUME 84.8 FL (78-98); MEAN PLATELET VOLUME 7.9 FL (7.4-10.4); MONOCYTES # (AUTO) 0.8 X10'3 (0-0.9); MONOCYTES % (AUTO) 7.5 % (2-12); NEUTROPHILS # (AUTO) 7.3 X10'3 (1.8-7.7); NEUTROPHILS % (AUTO) 71.4 % (42-75); PLATELET COUNT 318 X10'3 (140-440); RED BLOOD COUNT 4.82 X10'6 (4.70-6.10); RED CELL DISTRIBUTION WIDTH 14.4 % (11.5-14.5); WHITE BLOOD COUNT 10.2 X10'3 (4.5-11.0)
[2024-03-15 08:00] VITALS: BP_SYST 92; PULSE 79; RESP 16; O2SAT 93
[2024-03-15 08:15] LABS: ALANINE AMINOTRANSFERASE 20 U/L (12-78); ALBUMIN 2.8 G/DL (3.4-5.0); ALBUMIN/GLOBULIN RATIO 0.6 (1.1-1.5); ALKALINE PHOSPHATASE 87 IU/L (46-116); ANION GAP 7 (8-16); ASPARTATE AMINO TRANSFERASE 11 U/L (10-37); BILIRUBIN,TOTAL 0.3 MG/DL (0.1-1.0); BLOOD UREA NITROGEN 21 MG/DL (7-18); BUN/CREATININE RATIO 22.6 (10.0-20.0); CALCIUM 9.1 MG/DL (8.5-10.1); CHLORIDE 101 MMOL/L (99-107); CREATININE 0.93 MG/DL (0.60-1.10); GLUCOSE 181 MG/DL (70-104); MAGNESIUM 1.6 MG/DL (1.5-2.4); POTASSIUM 4.6 MMOL/L (3.5-5.1); SODIUM 136 MMOL/L (135-145); TOTAL CARBON DIOXIDE 28.2 MMOL/L (24-32); TOTAL PROTEIN 7.6 G/DL (6.4-8.2); eCRCL 84 ML/MIN; eGFR 82 ML/MIN
[2024-03-15] MEDS ORDERED: DOXY-243 PO (09:18)
[2024-03-15] MEDS: VANCOMYCIN LEVEL IV ONE (10:38)
== END 2024-03-15 11:40 | disposition home or self-care (01) | DRG 981 ==
LOC: ER 14:56 → ORTHO 4S 17:57
PROVIDERS: ADMIT Family Medicine; ATTEND Family Medicine
PROC: 0JDR0ZZ Extraction of Left Foot Subcutaneous Tissue and Fascia, Open Approach (ICD-10-PCS; principal; 2024-03-12)
DX: E11.621 Type 2 diabetes mellitus with foot ulcer (principal); L89.613 Pressure ulcer of right heel, stage 3; L03.116 Cellulitis of left lower limb; L97.429 Non-pressure chronic ulcer of left heel and midfoot with unspecified severity; E11.40 Type 2 diabetes mellitus with diabetic neuropathy, unspecified; E88.09 Other disorders of plasma-protein metabolism, not elsewhere classified; I10 Essential (primary) hypertension; E78.5 Hyperlipidemia, unspecified; E66.812 Obesity, class 2; I25.10 Atherosclerotic heart disease of native coronary artery without angina pectoris; B95.2 Enterococcus as the cause of diseases classified elsewhere; Z95.5 Presence of coronary angioplasty implant and graft; Z68.38 Body mass index [BMI] 38.0-38.9, adult; Z86.718 Personal history of other venous thrombosis and embolism; I25.2 Old myocardial infarction
CPT/HCPCS: 11042; 36415; 73630; 73723; 80053; 80061; 80202; 82948; 83036; 83605; 83735; 83880; 84145; 84443; 85025; 85610; 85651; 85730; 86140; 87040; 87070; 87075; 87077; 87081; 87186; 93306; 96365; 96375; 97110; 97161; 97530; 99285; A6446; A6449; A9575; G0378; J0696; J1171; J1815; J2405; J2470; J2543; J3372; J7030